=== PATIENT | male | born 1970 | race Caucasian/White ===

== ENCOUNTER 2018-04-22 14:58 | Inpatient (IN) ==
[2018-04-22 15:54] LABS: Basophils % 0.2 % (0.0-0.8); Hematocrit 41.5 VOL% (42.0-52.0); Hemoglobin 13.8 GM/DL (14.0-18.0); Immature Granulocytes % 0.9 %; Immature Granulocytes Absolute 0.12 #; Lymphocytes # 1.3 10*3/uL (1.4-4.0); Lymphocytes % 9.5 % (21.2-54.2); Mean Corpuscular HGB Conc 33.3 GM/DL (32-36); Mean Corpuscular Hemoglobin 31 PG (27-34); Mean Corpuscular Volume 93.3 FL (87-102); Mean Platelet Volume 9.1 FL (9.6-12.0); Monocytes # 0.8 10*3/uL (0.11-0.8); Monocytes % 5.8 % (1.7-12.7); Neutrophils # 11.1 10*3/uL (1.4-7.4); Neutrophils % 83.6 % (38.7-73.9); Platelet Count 347 T/CUMM (130-400); Red Blood Count 4.45 MC/CUMM (3.8-5.5); Red Cell Distribution Width 12.5 % (9.3-17.3); White Blood Count 13.2 T/CUMM (4-12)
[2018-04-22 16:13] LABS: Alanine Aminotransferase 67 U/L (16-61); Alkaline Phosphatase 75 U/L (45-117); Aspartate Amino Transferase 38 U/L (0-37); Blood Urea Nitrogen 20 MG/DL (7-18); Calcium 8.7 MG/DL (8.5-10.1); Glucose 130 MG/DL (74-106); Osmolality,Calculated 281.5 MOS/KG (273-304); Potassium 3.6 MMOL/L (3.5-5.1); Sodium 139 MMOL/L (136-145); Total Protein 7.8 G/DL (6.4-8.3)
[2018-04-22 16:18] LABS: Lactic Acid 2.2 MMOL/L (0.4-2.0)
[2018-04-22] MEDS ORDERED: methylPREDNISolone SOD SUC 40 MG/1 ML VIAL IV STA (16:22)
[2018-04-22] MEDS ORDERED: ALBUTEROL/IPRATROPIUM 3 ML NEB RESP TX STA (16:22)
[2018-04-22] MEDS ORDERED: LEVOFLOXACIN INJ 500 MG in PREMIX 1 EACH IV STA (16:22)
[2018-04-22 16:34] LABS: Apearance,Urine CLEAR (Clear); Bilirubin,Urine Negative (Negative); Blood, Urine Negative (Negative); Glucose,Urine (UA) Negative (Negative); Ketones,Urine Negative (Negative); Mucus,Urine Occasional /LPF (Occasional); Nitrite,Urine Negative (Negative); Protein,Urine 30 MG/DL; RBC,Urine <1 /HPF (0-4); Urine Color Yellow (Yellow); Urine Specific Gravity 1.024 (1.001-1.035); Urine Urobilinogen < 2.0 EU/DL (0.2-1.0); WBC,Urine 1 /HPF (0-6)
[2018-04-22] MEDS ORDERED: ACETAMINOPHEN 325 MG TABLET PO PRN (17:17)
[2018-04-22] MEDS ORDERED: ONDANSETRON 4 MG/2 ML VIAL IV PRN (17:17)
[2018-04-22] MEDS ORDERED: ALBUTEROL/IPRATROPIUM 3 ML NEB RESP TX PRN (17:19)
[2018-04-22] MEDS ORDERED: FUROSEMIDE 40 MG/4 ML VIAL IV STA (17:20)
[2018-04-22] MEDS ORDERED: POTASSIUM CHLORIDE 20 MEQ TABLET PO STA (17:21)
[2018-04-22] MEDS ORDERED: AZITHROMYCIN INJ 500 MG in SODIUM CHLORIDE 0.9% 250 ML IV SCH (17:30)
[2018-04-22] MEDS ORDERED: cefTRIAXone 1,000 MG in SYRINGE 1 EACH IV SCH (17:30)
[2018-04-22] MEDS ORDERED: SODIUM CHLORIDE 0.9% 100 ML IV ONE (17:47)
[2018-04-22] MEDS ORDERED: ALBUTEROL/IPRATROPIUM 3 ML NEB RESP TX SCH (19:00)
[2018-04-22] MEDS: methylPREDNISolone SOD SUC 40 MG/1 ML VIAL IV SCH (20:17)
[2018-04-22] MEDS: ENOXAPARIN 40 MG/0.4 ML SYRINGE SUBCUT SCH (21:08)
[2018-04-22] MEDS: guaiFENesin/DM ER 600-30 MG TABLET PO SCH (21:08)
[2018-04-22] MEDS: CARVEDILOL 6.25 MG TABLET PO SCH (21:09)
[2018-04-22] MEDS: ALBUTEROL/IPRATROPIUM 3 ML NEB RESP TX SCH (23:27)
[2018-04-23] MEDS: methylPREDNISolone SOD SUC 40 MG/1 ML VIAL IV SCH ×3 (01:30→18:04)
[2018-04-23] MEDS: ALBUTEROL/IPRATROPIUM 3 ML NEB RESP TX SCH ×7 (04:55→23:49)
[2018-04-23 05:31] LABS: Basophils % 0.1 % (0.0-0.8); Hematocrit 39.9 VOL% (42.0-52.0); Immature Granulocytes % 0.6 %; Immature Granulocytes Absolute 0.07 #; Lymphocytes # 0.7 10*3/uL (1.4-4.0); Lymphocytes % 6.5 % (21.2-54.2); Mean Corpuscular HGB Conc 32.6 GM/DL (32-36); Mean Corpuscular Hemoglobin 31 PG (27-34); Mean Corpuscular Volume 94.1 FL (87-102); Mean Platelet Volume 9.4 FL (9.6-12.0); Monocytes # 0.3 10*3/uL (0.11-0.8); Monocytes % 2.4 % (1.7-12.7); Neutrophils # 10.1 10*3/uL (1.4-7.4); Neutrophils % 90.4 % (38.7-73.9); Platelet Count 339 T/CUMM (130-400); Red Blood Count 4.24 MC/CUMM (3.8-5.5); Red Cell Distribution Width 12.6 % (9.3-17.3); White Blood Count 11.1 T/CUMM (4-12)
[2018-04-23 06:21] LABS: Calcium 8.6 MG/DL (8.5-10.1); Osmolality,Calculated 286.1 MOS/KG (273-304); Potassium 4.2 MMOL/L (3.5-5.1); Thyroid Stimulating Hormone 0.834 uIU/ml (0.358-3.74)
[2018-04-23 08:36] LABS: HIV Antigen/Antibody Result Nonreactive (Nonreactive)
[2018-04-23] MEDS: amLODIPine 5 MG TABLET PO SCH (09:32)
[2018-04-23] MEDS: hydroCHLOROthiazide 25 MG TABLET PO SCH (09:32)
[2018-04-23] MEDS: CARVEDILOL 6.25 MG TABLET PO SCH (09:32)
[2018-04-23] MEDS: OLMESARTAN 20 MG TABLET PO SCH (09:32)
[2018-04-23] MEDS: guaiFENesin/DM ER 600-30 MG TABLET PO SCH ×2 (09:32→21:14)
[2018-04-23] MEDS: SULFAMETHOX/TRIMETHOPRIM 800-160 MG TABLET PO SCH ×2 (09:35→21:14)
[2018-04-23] MEDS: FUROSEMIDE 20 MG/2 ML VIAL IV SCH (09:36)
[2018-04-23] MEDS ORDERED: CARVEDILOL 6.25 MG TABLET PO ONE (10:35)
[2018-04-23] MEDS: LEVOFLOXACIN INJ 750 MG in PREMIX 1 EACH IV SCH (16:30)
[2018-04-23] MEDS: ENOXAPARIN 40 MG/0.4 ML SYRINGE SUBCUT SCH (18:04)
[2018-04-23] MEDS: PIPERACILLIN/TAZOBACTAM 3,375 MG in SODIUM CHLORIDE 0.9% 100 ML IV SCH (18:05)
[2018-04-23] MEDS: ATORVASTATIN 20 MG TABLET PO SCH (21:14)
[2018-04-23] MEDS: CARVEDILOL 12.5 MG TABLET PO SCH (21:14)
[2018-04-24] MEDS: PIPERACILLIN/TAZOBACTAM 3,375 MG in SODIUM CHLORIDE 0.9% 100 ML IV SCH ×3 (00:56→20:50)
[2018-04-24] MEDS: methylPREDNISolone SOD SUC 40 MG/1 ML VIAL IV SCH ×3 (00:56→17:18)
[2018-04-24] MEDS: ALBUTEROL/IPRATROPIUM 3 ML NEB RESP TX SCH ×6 (03:49→23:57)
[2018-04-24 05:57] LABS: Basophils % 0.1 % (0.0-0.8); Hematocrit 39.3 VOL% (42.0-52.0); Hemoglobin 12.9 GM/DL (14.0-18.0); Immature Granulocytes % 0.6 %; Lymphocytes # 0.8 10*3/uL (1.4-4.0); Lymphocytes % 4.7 % (21.2-54.2); Mean Corpuscular HGB Conc 32.8 GM/DL (32-36); Mean Corpuscular Hemoglobin 31 PG (27-34); Mean Corpuscular Volume 94.9 FL (87-102); Mean Platelet Volume 9.3 FL (9.6-12.0); Monocytes # 0.6 10*3/uL (0.11-0.8); Monocytes % 3.4 % (1.7-12.7); Neutrophils # 14.7 10*3/uL (1.4-7.4); Neutrophils % 91.2 % (38.7-73.9); Platelet Count 380 T/CUMM (130-400); Red Blood Count 4.14 MC/CUMM (3.8-5.5); Red Cell Distribution Width 12.5 % (9.3-17.3); White Blood Count 16.1 T/CUMM (4-12)
[2018-04-24 06:19] LABS: Calcium 8.1 MG/DL (8.5-10.1); Calcium 8.3 MG/DL (8.5-10.1); Osmolality,Calculated 281.5 MOS/KG (273-304); Osmolality,Calculated 283.4 MOS/KG (273-304); Potassium 4.1 MMOL/L (3.5-5.1); Potassium 4.2 MMOL/L (3.5-5.1)
[2018-04-24 07:28] LABS: Lymphocytes 5 % (20-55); Segmented Neutrophils 90 % (50-85); Total Cells Counted 100
[2018-04-24 07:32] LABS: Hypochromasia Slight; Platelet Estimate Normal
[2018-04-24] MEDS ORDERED: AZITHROMYCIN 250 MG TABLET PO SCH (09:00)
[2018-04-24] MEDS: FUROSEMIDE 20 MG/2 ML VIAL IV SCH (10:04)
[2018-04-24] MEDS: guaiFENesin/DM ER 600-30 MG TABLET PO SCH ×2 (10:04→20:53)
[2018-04-24] MEDS: hydroCHLOROthiazide 25 MG TABLET PO SCH (10:04)
[2018-04-24] MEDS: SULFAMETHOX/TRIMETHOPRIM 800-160 MG TABLET PO SCH ×2 (10:04→20:53)
[2018-04-24] MEDS: CARVEDILOL 12.5 MG TABLET PO SCH ×2 (10:04→20:53)
[2018-04-24] MEDS: OLMESARTAN 20 MG TABLET PO SCH (10:04)
[2018-04-24] MEDS: amLODIPine 5 MG TABLET PO SCH (10:08)
[2018-04-24] MEDS: LEVOFLOXACIN INJ 750 MG in PREMIX 1 EACH IV SCH (17:18)
[2018-04-24] MEDS: ENOXAPARIN 40 MG/0.4 ML SYRINGE SUBCUT SCH (18:20)
[2018-04-24] MEDS: PANTOPRAZOLE 40 MG TABLET PO SCH (18:51)
[2018-04-24] MEDS: ATORVASTATIN 20 MG TABLET PO SCH (20:53)
[2018-04-25] MEDS: BENZONATATE 100 MG CAPSULE PO SCH ×5 (00:07→17:20)
[2018-04-25] MEDS: ALBUTEROL/IPRATROPIUM 3 ML NEB RESP TX SCH ×6 (03:39→23:17)
[2018-04-25] MEDS: PIPERACILLIN/TAZOBACTAM 3,375 MG in SODIUM CHLORIDE 0.9% 100 ML IV SCH ×3 (05:09→20:40)
[2018-04-25] MEDS: OLMESARTAN 20 MG TABLET PO SCH (08:36)
[2018-04-25] MEDS: methylPREDNISolone SOD SUC 40 MG/1 ML VIAL IV SCH ×2 (08:36→20:40)
[2018-04-25] MEDS: FUROSEMIDE 20 MG/2 ML VIAL IV SCH (08:36)
[2018-04-25] MEDS: CARVEDILOL 12.5 MG TABLET PO SCH ×2 (08:37→20:40)
[2018-04-25] MEDS: guaiFENesin/DM ER 600-30 MG TABLET PO SCH ×2 (08:37→20:40)
[2018-04-25] MEDS: amLODIPine 5 MG TABLET PO SCH (08:37)
[2018-04-25] MEDS: SULFAMETHOX/TRIMETHOPRIM 800-160 MG TABLET PO SCH (08:37)
[2018-04-25] MEDS: PANTOPRAZOLE 40 MG TABLET PO SCH (08:37)
[2018-04-25] MEDS: hydroCHLOROthiazide 25 MG TABLET PO SCH (08:37)
[2018-04-25] MEDS: ENOXAPARIN 40 MG/0.4 ML SYRINGE SUBCUT SCH (17:20)
[2018-04-25] MEDS: LEVOFLOXACIN INJ 750 MG in PREMIX 1 EACH IV SCH (18:04)
[2018-04-25] MEDS: ATORVASTATIN 20 MG TABLET PO SCH (20:40)
[2018-04-26] MEDS: BENZONATATE 100 MG CAPSULE PO SCH ×5 (00:37→23:39)
[2018-04-26] MEDS: ALBUTEROL/IPRATROPIUM 3 ML NEB RESP TX SCH ×6 (03:03→23:44)
[2018-04-26] MEDS: PIPERACILLIN/TAZOBACTAM 3,375 MG in SODIUM CHLORIDE 0.9% 100 ML IV SCH ×3 (05:40→21:40)
[2018-04-26] MEDS: guaiFENesin/DM ER 600-30 MG TABLET PO SCH ×2 (08:58→21:39)
[2018-04-26] MEDS: PANTOPRAZOLE 40 MG TABLET PO SCH (08:58)
[2018-04-26] MEDS: OLMESARTAN 20 MG TABLET PO SCH (08:58)
[2018-04-26] MEDS: CARVEDILOL 12.5 MG TABLET PO SCH ×2 (08:58→21:39)
[2018-04-26] MEDS: amLODIPine 5 MG TABLET PO SCH (08:58)
[2018-04-26] MEDS: FUROSEMIDE 20 MG/2 ML VIAL IV SCH (08:58)
[2018-04-26] MEDS: methylPREDNISolone SOD SUC 40 MG/1 ML VIAL IV SCH (08:59)
[2018-04-26] MEDS ORDERED: methylPREDNISolone SOD SUC 40 MG/1 ML VIAL IV SCH (10:00)
[2018-04-26 10:56] LABS: Calcium 8.2 MG/DL (8.5-10.1); Osmolality,Calculated 284.5 MOS/KG (273-304); Potassium 3.8 MMOL/L (3.5-5.1)
[2018-04-26] MEDS: LEVOFLOXACIN INJ 750 MG in PREMIX 1 EACH IV SCH (16:49)
[2018-04-26] MEDS: ENOXAPARIN 40 MG/0.4 ML SYRINGE SUBCUT SCH (18:12)
[2018-04-26] MEDS: ATORVASTATIN 20 MG TABLET PO SCH (21:39)
[2018-04-27] MEDS: ALBUTEROL/IPRATROPIUM 3 ML NEB RESP TX SCH ×2 (03:21→07:52)
[2018-04-27] MEDS: PIPERACILLIN/TAZOBACTAM 3,375 MG in SODIUM CHLORIDE 0.9% 100 ML IV SCH (05:22)
[2018-04-27] MEDS: BENZONATATE 100 MG CAPSULE PO SCH ×2 (05:25→14:30)
[2018-04-27] MEDS: FUROSEMIDE 20 MG/2 ML VIAL IV SCH (09:06)
[2018-04-27] MEDS: amLODIPine 5 MG TABLET PO SCH (09:06)
[2018-04-27] MEDS: PANTOPRAZOLE 40 MG TABLET PO SCH (09:06)
[2018-04-27] MEDS: guaiFENesin/DM ER 600-30 MG TABLET PO SCH (09:06)
[2018-04-27] MEDS: CARVEDILOL 12.5 MG TABLET PO SCH (09:06)
[2018-04-27] MEDS: OLMESARTAN 20 MG TABLET PO SCH (09:07)
[2018-04-27 09:14] LABS: Basophils % 0.3 % (0.0-0.8); Eosinophils % 0.2 % (0.00-10.9); Hematocrit 44.4 VOL% (42.0-52.0); Hemoglobin 14.4 GM/DL (14.0-18.0); Immature Granulocytes % 2.9 %; Immature Granulocytes Absolute 0.37 #; Lymphocytes # 2.2 10*3/uL (1.4-4.0); Lymphocytes % 17.2 % (21.2-54.2); Mean Corpuscular HGB Conc 32.4 GM/DL (32-36); Mean Corpuscular Hemoglobin 31 PG (27-34); Mean Corpuscular Volume 94.5 FL (87-102); Mean Platelet Volume 9.1 FL (9.6-12.0); Monocytes # 0.8 10*3/uL (0.11-0.8); Monocytes % 6.5 % (1.7-12.7); Neutrophils # 9.3 10*3/uL (1.4-7.4); Neutrophils % 72.9 % (38.7-73.9); Platelet Count 439 T/CUMM (130-400); Red Cell Distribution Width 12.3 % (9.3-17.3); White Blood Count 12.7 T/CUMM (4-12)
[2018-04-27] MEDS ORDERED: methylPREDNISolone SOD SUC 40 MG/1 ML VIAL IV SCH (10:00)
[2018-04-27 10:49] VITALS: BP 121/68
== END 2018-04-27 12:10 | disposition home or self-care (01) | DRG 291 ==
LOC: N.ED 14:58 → SUATTDRO 17:17 → N.5E 17:17
PROVIDERS: ADMIT Internal Medicine; ATTEND Internal Medicine

== ENCOUNTER 2018-05-31 00:42 | Inpatient (IN) ==
[2018-05-31] MEDS ORDERED: KETOROLAC 30 MG/1 ML VIAL IV STA (01:10)
[2018-05-31] MEDS ORDERED: ORPHENADRINE 60 MG/2 ML VIAL IV STA (01:12)
[2018-05-31 01:18] LABS: Basophils # 0.1 10*3/uL (0.0-0.2); Basophils % 0.7 % (0.0-0.8); Eosinophils # 0.2 10*3/uL (0.0-0.87); Eosinophils % 3.2 % (0.00-10.9); Hematocrit 42.5 VOL% (42.0-52.0); Immature Granulocytes % 0.7 %; Immature Granulocytes Absolute 0.05 #; Lymphocytes # 1.8 10*3/uL (1.4-4.0); Lymphocytes % 23.5 % (21.2-54.2); Mean Corpuscular HGB Conc 32.9 GM/DL (32-36); Mean Corpuscular Hemoglobin 31 PG (27-34); Mean Corpuscular Volume 93.4 FL (87-102); Mean Platelet Volume 9.3 FL (9.6-12.0); Monocytes # 0.4 10*3/uL (0.11-0.8); Monocytes % 5.3 % (1.7-12.7); Neutrophils % 66.6 % (38.7-73.9); Platelet Count 244 T/CUMM (130-400); Red Blood Count 4.55 MC/CUMM (3.8-5.5); Red Cell Distribution Width 12.5 % (9.3-17.3); White Blood Count 7.5 T/CUMM (4-12)
[2018-05-31 01:33] LABS: INR 0.9; Partial Thromboplastin Time 26.6 SECS (0-40)
[2018-05-31 01:42] LABS: Albumin 3.3 G/DL (3.4-5.0); Bilirubin,Total 0.9 MG/DL (0.2-1.0); Calcium 8.6 MG/DL (8.5-10.1); Potassium 3.5 MMOL/L (3.5-5.1); Total Protein 7.1 G/DL (6.4-8.3); Troponin I 0.031 NG/ML (0.00-0.045)
[2018-05-31] MEDS ORDERED: FUROSEMIDE 40 MG/4 ML VIAL IV STA (02:56)
[2018-05-31] MEDS ORDERED: MAGNESIUM SULF RIDER 4 GM in PREMIX 1 EACH IV PRN (04:36)
[2018-05-31] MEDS ORDERED: ONDANSETRON 4 MG/2 ML VIAL IV PRN (04:36)
[2018-05-31] MEDS ORDERED: MAGNESIUM SULF RIDER 2 GM in PREMIX 1 EACH IV PRN (04:36)
[2018-05-31] MEDS ORDERED: BENZONATATE 100 MG CAPSULE PO PRN (04:36)
[2018-05-31] MEDS ORDERED: ACETAMINOPHEN 325 MG TABLET PO PRN (04:36)
[2018-05-31] MEDS: amLODIPine 5 MG TABLET PO SCH (08:57)
[2018-05-31] MEDS: FUROSEMIDE 40 MG/4 ML VIAL IV SCH ×2 (08:57→17:02)
[2018-05-31] MEDS: LOSARTAN 25 MG TABLET PO SCH (08:57)
[2018-05-31] MEDS: PANTOPRAZOLE 40 MG TABLET PO SCH (08:57)
[2018-05-31] MEDS: CARVEDILOL 12.5 MG TABLET PO SCH ×2 (08:57→17:02)
[2018-05-31] MEDS: ENOXAPARIN 40 MG/0.4 ML SYRINGE SUBCUT SCH (08:58)
[2018-05-31] MEDS: ATORVASTATIN 20 MG TABLET PO SCH (22:08)
[2018-06-01 04:35] LABS: Basophils % 0.6 % (0.0-0.8); Eosinophils # 0.3 10*3/uL (0.0-0.87); Eosinophils % 4.5 % (0.00-10.9); Hematocrit 40.4 VOL% (42.0-52.0); Immature Granulocytes % 0.9 %; Immature Granulocytes Absolute 0.06 #; Lymphocytes # 1.9 10*3/uL (1.4-4.0); Lymphocytes % 27.2 % (21.2-54.2); Mean Corpuscular HGB Conc 32.2 GM/DL (32-36); Mean Corpuscular Hemoglobin 30 PG (27-34); Mean Corpuscular Volume 93.5 FL (87-102); Mean Platelet Volume 9.8 FL (9.6-12.0); Monocytes # 0.5 10*3/uL (0.11-0.8); Monocytes % 7.3 % (1.7-12.7); Neutrophils # 4.1 10*3/uL (1.4-7.4); Neutrophils % 59.5 % (38.7-73.9); Platelet Count 238 T/CUMM (130-400); Red Blood Count 4.32 MC/CUMM (3.8-5.5); Red Cell Distribution Width 12.4 % (9.3-17.3); White Blood Count 6.9 T/CUMM (4-12)
[2018-06-01 04:50] LABS: Calcium 8.4 MG/DL (8.5-10.1); Osmolality,Calculated 282.4 MOS/KG (273-304); Potassium 3.1 MMOL/L (3.5-5.1)
[2018-06-01] MEDS: POTASSIUM CHLORIDE 20 MEQ TABLET PO PRN ×5 (06:42→23:20)
[2018-06-01] MEDS: LOSARTAN 25 MG TABLET PO SCH (09:13)
[2018-06-01] MEDS: ASPIRIN EC 81 MG TABLET PO SCH (09:13)
[2018-06-01] MEDS: amLODIPine 5 MG TABLET PO SCH (09:13)
[2018-06-01] MEDS: PANTOPRAZOLE 40 MG TABLET PO SCH (09:13)
[2018-06-01] MEDS: CARVEDILOL 12.5 MG TABLET PO SCH ×2 (09:13→17:02)
[2018-06-01] MEDS: ENOXAPARIN 40 MG/0.4 ML SYRINGE SUBCUT SCH (09:14)
[2018-06-01] MEDS: FUROSEMIDE 40 MG/4 ML VIAL IV SCH ×2 (09:14→17:01)
[2018-06-01] MEDS ORDERED: MAGNESIUM SULF RIDER 2 GM in PREMIX 1 EACH IV PRN (11:58)
[2018-06-01] MEDS ORDERED: POTASSIUM CHLORIDE RIDER 10 MEQ in PREMIX 1 EACH IV PRN (11:58)
[2018-06-01] MEDS: ATORVASTATIN 20 MG TABLET PO SCH (20:56)
[2018-06-02 04:43] LABS: Basophils # 0.1 10*3/uL (0.0-0.2); Basophils % 0.8 % (0.0-0.8); Eosinophils # 0.4 10*3/uL (0.0-0.87); Eosinophils % 4.7 % (0.00-10.9); Hematocrit 41.3 VOL% (42.0-52.0); Hemoglobin 13.5 GM/DL (14.0-18.0); Immature Granulocytes % 0.7 %; Immature Granulocytes Absolute 0.05 #; Lymphocytes % 26.9 % (21.2-54.2); Mean Corpuscular HGB Conc 32.7 GM/DL (32-36); Mean Corpuscular Hemoglobin 31 PG (27-34); Mean Corpuscular Volume 93.2 FL (87-102); Mean Platelet Volume 9.6 FL (9.6-12.0); Monocytes # 0.5 10*3/uL (0.11-0.8); Monocytes % 6.9 % (1.7-12.7); Neutrophils # 4.5 10*3/uL (1.4-7.4); Platelet Count 236 T/CUMM (130-400); Red Blood Count 4.43 MC/CUMM (3.8-5.5); Red Cell Distribution Width 12.4 % (9.3-17.3); White Blood Count 7.5 T/CUMM (4-12)
[2018-06-02 05:09] LABS: Calcium 8.5 MG/DL (8.5-10.1); Osmolality,Calculated 284.1 MOS/KG (273-304); Potassium 3.7 MMOL/L (3.5-5.1)
[2018-06-02] MEDS ORDERED: SODIUM BICARBONATE 2.4 MEQ/5 ML VIAL ONE (06:45)
[2018-06-02] MEDS ORDERED: HEPARIN/NACL 0.9% 2 UNITS/ML 1,000 ML IV ONE (06:45)
[2018-06-02] MEDS ORDERED: SODIUM CHLORIDE 0.45% 1,000 ML IV SCH (07:00)
[2018-06-02] MEDS: CARVEDILOL 12.5 MG TABLET PO SCH ×2 (07:59→16:57)
[2018-06-02] MEDS: ASPIRIN EC 81 MG TABLET PO SCH (08:00)
[2018-06-02] MEDS: amLODIPine 5 MG TABLET PO SCH (08:00)
[2018-06-02] MEDS: LOSARTAN 25 MG TABLET PO SCH (08:00)
[2018-06-02] MEDS: PANTOPRAZOLE 40 MG TABLET PO SCH (08:00)
[2018-06-02] MEDS ORDERED: MIDAZOLAM 2 MG/2 ML VIAL ONE ×2 (08:20→08:36)
[2018-06-02] MEDS ORDERED: fentaNYL 100 MCG/2 ML VIAL ONE (08:20)
[2018-06-02] MEDS ORDERED: DIAZEPAM 5 MG TABLET PO ONE (08:30)
[2018-06-02] MEDS ORDERED: diphenhydrAMINE CAP 25 MG CAPSULE PO ONE (08:30)
[2018-06-02] MEDS ORDERED: LIDOCAINE 1% 20 ML VIAL ONE (08:50)
[2018-06-02] MEDS ORDERED: MORPHINE 4 MG/1 ML VIAL IV PRN (09:10)
[2018-06-02] MEDS: FUROSEMIDE 40 MG/4 ML VIAL IV SCH ×2 (16:36→16:55)
[2018-06-02] MEDS: ENOXAPARIN 40 MG/0.4 ML SYRINGE SUBCUT SCH (16:37)
[2018-06-02] MEDS: ATORVASTATIN 20 MG TABLET PO SCH (21:27)
[2018-06-03 04:35] LABS: Basophils % 0.5 % (0.0-0.8); Eosinophils # 0.4 10*3/uL (0.0-0.87); Eosinophils % 4.7 % (0.00-10.9); Hemoglobin 12.9 GM/DL (14.0-18.0); Immature Granulocytes % 0.5 %; Immature Granulocytes Absolute 0.04 #; Lymphocytes # 1.9 10*3/uL (1.4-4.0); Lymphocytes % 24.6 % (21.2-54.2); Mean Corpuscular HGB Conc 32.3 GM/DL (32-36); Mean Corpuscular Hemoglobin 30 PG (27-34); Mean Corpuscular Volume 94.1 FL (87-102); Mean Platelet Volume 9.7 FL (9.6-12.0); Monocytes # 0.5 10*3/uL (0.11-0.8); Monocytes % 6.4 % (1.7-12.7); Neutrophils # 4.9 10*3/uL (1.4-7.4); Neutrophils % 63.3 % (38.7-73.9); Platelet Count 226 T/CUMM (130-400); Red Blood Count 4.25 MC/CUMM (3.8-5.5); Red Cell Distribution Width 12.5 % (9.3-17.3); White Blood Count 7.8 T/CUMM (4-12)
[2018-06-03 04:52] LABS: Calcium 8.3 MG/DL (8.5-10.1); Osmolality,Calculated 284.3 MOS/KG (273-304); Potassium 3.7 MMOL/L (3.5-5.1)
[2018-06-03 08:22] VITALS: BP 120/71
[2018-06-03] MEDS: FUROSEMIDE 40 MG/4 ML VIAL IV SCH (08:58)
[2018-06-03] MEDS: ASPIRIN EC 81 MG TABLET PO SCH (08:59)
[2018-06-03] MEDS: CARVEDILOL 12.5 MG TABLET PO SCH (08:59)
[2018-06-03] MEDS: ENOXAPARIN 40 MG/0.4 ML SYRINGE SUBCUT SCH (08:59)
[2018-06-03] MEDS: amLODIPine 5 MG TABLET PO SCH (08:59)
[2018-06-03] MEDS: PANTOPRAZOLE 40 MG TABLET PO SCH (08:59)
[2018-06-03] MEDS: LOSARTAN 25 MG TABLET PO SCH (08:59)
[2018-06-03] MEDS ORDERED: FUROSEMIDE 40 MG TABLET PO SCH (09:00)
== END 2018-06-03 11:55 | disposition home or self-care (01) | DRG 287 ==
LOC: N.ED 00:42 → N.EDINP 03:44 → N.TELES 04:33
PROVIDERS: ADMIT Internal Medicine; ATTEND Internal Medicine
PROC: CLCCHCL (ICD-10-PCS; 2018-06-02 08:45)

== ENCOUNTER 2018-07-06 17:45 | Inpatient (IN) ==
[2018-07-06 19:38] LABS: Basophils # 0.1 10*3/uL (0.0-0.2); Basophils % 0.6 % (0.0-0.8); Eosinophils # 0.4 10*3/uL (0.0-0.87); Hematocrit 39.5 VOL% (42.0-52.0); Hemoglobin 12.7 GM/DL (14.0-18.0); Immature Granulocytes % 0.4 %; Immature Granulocytes Absolute 0.04 #; Lymphocytes # 2.3 10*3/uL (1.4-4.0); Mean Corpuscular HGB Conc 32.2 GM/DL (32-36); Mean Corpuscular Hemoglobin 30 PG (27-34); Mean Corpuscular Volume 92.7 FL (87-102); Mean Platelet Volume 9.2 FL (9.6-12.0); Monocytes # 0.5 10*3/uL (0.11-0.8); Monocytes % 4.4 % (1.7-12.7); Neutrophils # 7.2 10*3/uL (1.4-7.4); Neutrophils % 68.6 % (38.7-73.9); Platelet Count 270 T/CUMM (130-400); Red Blood Count 4.26 MC/CUMM (3.8-5.5); Red Cell Distribution Width 13.4 % (9.3-17.3); White Blood Count 10.5 T/CUMM (4-12)
[2018-07-06] MEDS ORDERED: FUROSEMIDE 40 MG/4 ML VIAL IV STA (19:55)
[2018-07-06 20:00] LABS: Albumin 3.3 G/DL (3.4-5.0); Bilirubin,Total 0.8 MG/DL (0.2-1.0); Calcium 8.5 MG/DL (8.5-10.1); Osmolality,Calculated 281.4 MOS/KG (273-304); Potassium 3.6 MMOL/L (3.5-5.1); Total Protein 7.5 G/DL (6.4-8.3)
[2018-07-06] MEDS ORDERED: ZALEPLON 5 MG CAPSULE PO PRN (21:33)
[2018-07-06] MEDS ORDERED: MAGNESIUM SULF RIDER 2 GM in PREMIX 1 EACH IV PRN (21:33)
[2018-07-06] MEDS ORDERED: MAGNESIUM SULF RIDER 4 GM in PREMIX 1 EACH IV PRN (21:33)
[2018-07-06] MEDS ORDERED: ACETAMINOPHEN 325 MG TABLET PO PRN (21:33)
[2018-07-06] MEDS ORDERED: ONDANSETRON 4 MG/2 ML VIAL IV PRN (21:33)
[2018-07-06] MEDS ORDERED: ALBUTEROL 2.5 MG/3 ML NEB RESP TX PRN (21:38)
[2018-07-06] MEDS: ENOXAPARIN 40 MG/0.4 ML SYRINGE SUBCUT SCH (22:44)
[2018-07-07 07:02] LABS: Albumin 3.1 G/DL (3.4-5.0); Bilirubin,Total 1.7 MG/DL (0.2-1.0); Calcium 8.8 MG/DL (8.5-10.1); Osmolality,Calculated 275.7 MOS/KG (273-304); Potassium 3.4 MMOL/L (3.5-5.1)
[2018-07-07] MEDS ORDERED: LOSARTAN 25 MG TABLET PO SCH (09:00)
[2018-07-07] MEDS: CARVEDILOL 12.5 MG TABLET PO SCH ×2 (09:31→17:26)
[2018-07-07] MEDS: FUROSEMIDE 40 MG/4 ML VIAL IV SCH ×2 (09:31→17:26)
[2018-07-07] MEDS: SPIRONOLACTONE 25 MG TABLET PO SCH (09:31)
[2018-07-07] MEDS: amLODIPine 5 MG TABLET PO SCH (09:31)
[2018-07-07] MEDS: PANTOPRAZOLE 40 MG TABLET PO SCH (09:31)
[2018-07-07] MEDS: POTASSIUM CHLORIDE RIDER 10 MEQ in PREMIX 1 EACH IV PRN ×3 (10:33→14:50)
[2018-07-07] MEDS ORDERED: CLOTRIMAZOLE 1% CREAM 15 GM TUBE TOP SCH (21:00)
[2018-07-07] MEDS: SACUBITRIL/VALSARTAN 49-51 MG TABLET PO SCH (21:21)
[2018-07-07] MEDS: ENOXAPARIN 40 MG/0.4 ML SYRINGE SUBCUT SCH (21:21)
[2018-07-07] MEDS: ATORVASTATIN 20 MG TABLET PO SCH (21:22)
[2018-07-08 04:49] LABS: Basophils % 0.6 % (0.0-0.8); Eosinophils # 0.6 10*3/uL (0.0-0.87); Eosinophils % 8.4 % (0.00-10.9); Hematocrit 37.6 VOL% (42.0-52.0); Hemoglobin 11.9 GM/DL (14.0-18.0); Immature Granulocytes % 0.3 %; Immature Granulocytes Absolute 0.02 #; Lymphocytes # 1.8 10*3/uL (1.4-4.0); Lymphocytes % 27.5 % (21.2-54.2); Mean Corpuscular HGB Conc 31.6 GM/DL (32-36); Mean Corpuscular Hemoglobin 29 PG (27-34); Mean Corpuscular Volume 92.4 FL (87-102); Mean Platelet Volume 9.1 FL (9.6-12.0); Monocytes # 0.4 10*3/uL (0.11-0.8); Monocytes % 6.1 % (1.7-12.7); Neutrophils # 3.7 10*3/uL (1.4-7.4); Neutrophils % 57.1 % (38.7-73.9); Platelet Count 240 T/CUMM (130-400); Red Blood Count 4.07 MC/CUMM (3.8-5.5); Red Cell Distribution Width 13.3 % (9.3-17.3); White Blood Count 6.6 T/CUMM (4-12)
[2018-07-08 05:07] LABS: Calcium 8.6 MG/DL (8.5-10.1); Osmolality,Calculated 279.5 MOS/KG (273-304); Potassium 3.6 MMOL/L (3.5-5.1)
[2018-07-08] MEDS: SPIRONOLACTONE 25 MG TABLET PO SCH (11:12)
[2018-07-08] MEDS: amLODIPine 5 MG TABLET PO SCH (11:13)
[2018-07-08] MEDS: PANTOPRAZOLE 40 MG TABLET PO SCH (11:13)
[2018-07-08] MEDS: CARVEDILOL 12.5 MG TABLET PO SCH (11:13)
[2018-07-08] MEDS: SACUBITRIL/VALSARTAN 49-51 MG TABLET PO SCH ×2 (11:14→21:53)
[2018-07-08] MEDS: FUROSEMIDE 40 MG/4 ML VIAL IV SCH (11:16)
[2018-07-08] MEDS ORDERED: CARVEDILOL 25 MG TABLET PO SCH (17:00)
[2018-07-08] MEDS: FUROSEMIDE 40 MG TABLET PO SCH (17:25)
[2018-07-08] MEDS: ENOXAPARIN 40 MG/0.4 ML SYRINGE SUBCUT SCH (21:53)
[2018-07-08] MEDS: ATORVASTATIN 20 MG TABLET PO SCH (21:53)
[2018-07-09 05:47] LABS: Basophils % 0.6 % (0.0-0.8); Eosinophils # 0.6 10*3/uL (0.0-0.87); Eosinophils % 8.4 % (0.00-10.9); Hematocrit 37.8 VOL% (42.0-52.0); Hemoglobin 12.1 GM/DL (14.0-18.0); Immature Granulocytes % 0.3 %; Immature Granulocytes Absolute 0.02 #; Lymphocytes # 1.8 10*3/uL (1.4-4.0); Lymphocytes % 27.8 % (21.2-54.2); Mean Corpuscular Hemoglobin 30 PG (27-34); Mean Corpuscular Volume 92.4 FL (87-102); Mean Platelet Volume 9.4 FL (9.6-12.0); Monocytes # 0.4 10*3/uL (0.11-0.8); Monocytes % 6.7 % (1.7-12.7); Neutrophils # 3.7 10*3/uL (1.4-7.4); Neutrophils % 56.2 % (38.7-73.9); Platelet Count 244 T/CUMM (130-400); Red Blood Count 4.09 MC/CUMM (3.8-5.5); Red Cell Distribution Width 13.3 % (9.3-17.3); White Blood Count 6.6 T/CUMM (4-12)
[2018-07-09 06:04] LABS: Calcium 8.5 MG/DL (8.5-10.1); Osmolality,Calculated 281.4 MOS/KG (273-304); Potassium 3.6 MMOL/L (3.5-5.1)
[2018-07-09] MEDS: CARVEDILOL 6.25 MG TABLET PO SCH ×2 (08:52→17:22)
[2018-07-09] MEDS: PANTOPRAZOLE 40 MG TABLET PO SCH (08:52)
[2018-07-09] MEDS: SPIRONOLACTONE 25 MG TABLET PO SCH (08:52)
[2018-07-09] MEDS: FUROSEMIDE 40 MG TABLET PO SCH ×2 (08:52→17:22)
[2018-07-09] MEDS: POTASSIUM CHLORIDE 20 MEQ TABLET PO SCH (08:52)
[2018-07-09] MEDS: cefTRIAXone 1,000 MG in SYRINGE 1 EACH IV SCH (11:00)
[2018-07-09] MEDS: ATORVASTATIN 20 MG TABLET PO SCH (22:02)
[2018-07-09] MEDS: ENOXAPARIN 40 MG/0.4 ML SYRINGE SUBCUT SCH (22:03)
[2018-07-10 06:03] LABS: Basophils % 0.5 % (0.0-0.8); Eosinophils # 0.5 10*3/uL (0.0-0.87); Eosinophils % 5.4 % (0.00-10.9); Hematocrit 37.5 VOL% (42.0-52.0); Hemoglobin 11.9 GM/DL (14.0-18.0); Immature Granulocytes % 0.3 %; Immature Granulocytes Absolute 0.03 #; Lymphocytes # 1.9 10*3/uL (1.4-4.0); Lymphocytes % 21.6 % (21.2-54.2); Mean Corpuscular HGB Conc 31.7 GM/DL (32-36); Mean Corpuscular Hemoglobin 30 PG (27-34); Mean Corpuscular Volume 92.8 FL (87-102); Mean Platelet Volume 9.3 FL (9.6-12.0); Monocytes # 0.5 10*3/uL (0.11-0.8); Monocytes % 5.8 % (1.7-12.7); Neutrophils # 5.8 10*3/uL (1.4-7.4); Neutrophils % 66.4 % (38.7-73.9); Platelet Count 219 T/CUMM (130-400); Red Blood Count 4.04 MC/CUMM (3.8-5.5); Red Cell Distribution Width 13.3 % (9.3-17.3); White Blood Count 8.7 T/CUMM (4-12)
[2018-07-10 06:31] LABS: Calcium 8.5 MG/DL (8.5-10.1); Osmolality,Calculated 279.4 MOS/KG (273-304)
[2018-07-10] MEDS: FUROSEMIDE 40 MG TABLET PO SCH ×2 (08:43→16:19)
[2018-07-10] MEDS: CARVEDILOL 6.25 MG TABLET PO SCH ×2 (08:43→16:19)
[2018-07-10] MEDS: POTASSIUM CHLORIDE 20 MEQ TABLET PO SCH (08:43)
[2018-07-10] MEDS: SPIRONOLACTONE 25 MG TABLET PO SCH (08:43)
[2018-07-10] MEDS: PANTOPRAZOLE 40 MG TABLET PO SCH (08:43)
[2018-07-10] MEDS: cefTRIAXone 1,000 MG in SYRINGE 1 EACH IV SCH (11:25)
[2018-07-10] MEDS: ATORVASTATIN 20 MG TABLET PO SCH (22:30)
[2018-07-10] MEDS: ENOXAPARIN 40 MG/0.4 ML SYRINGE SUBCUT SCH (22:30)
[2018-07-10] MEDS: SACUBITRIL/VALSARTAN 49-51 MG TABLET PO SCH (22:34)
[2018-07-11 05:41] LABS: Basophils # 0.1 10*3/uL (0.0-0.2); Basophils % 0.7 % (0.0-0.8); Eosinophils # 0.6 10*3/uL (0.0-0.87); Eosinophils % 8.3 % (0.00-10.9); Hematocrit 38.5 VOL% (42.0-52.0); Hemoglobin 12.1 GM/DL (14.0-18.0); Immature Granulocytes % 0.3 %; Immature Granulocytes Absolute 0.02 #; Lymphocytes # 1.7 10*3/uL (1.4-4.0); Lymphocytes % 23.6 % (21.2-54.2); Mean Corpuscular HGB Conc 31.4 GM/DL (32-36); Mean Corpuscular Hemoglobin 30 PG (27-34); Mean Corpuscular Volume 93.9 FL (87-102); Mean Platelet Volume 9.6 FL (9.6-12.0); Monocytes # 0.5 10*3/uL (0.11-0.8); Monocytes % 6.8 % (1.7-12.7); Neutrophils # 4.4 10*3/uL (1.4-7.4); Neutrophils % 60.3 % (38.7-73.9); Platelet Count 236 T/CUMM (130-400); Red Cell Distribution Width 13.5 % (9.3-17.3); White Blood Count 7.3 T/CUMM (4-12)
[2018-07-11 06:00] LABS: Osmolality,Calculated 280.4 MOS/KG (273-304); Potassium 3.6 MMOL/L (3.5-5.1)
[2018-07-11] MEDS: SACUBITRIL/VALSARTAN 49-51 MG TABLET PO SCH (09:39)
[2018-07-11] MEDS: PANTOPRAZOLE 40 MG TABLET PO SCH (09:39)
[2018-07-11] MEDS: POTASSIUM CHLORIDE 20 MEQ TABLET PO SCH (09:39)
[2018-07-11] MEDS: SPIRONOLACTONE 25 MG TABLET PO SCH (09:39)
[2018-07-11] MEDS: CARVEDILOL 6.25 MG TABLET PO SCH (09:39)
[2018-07-11] MEDS: FUROSEMIDE 40 MG TABLET PO SCH (09:39)
[2018-07-11 10:05] VITALS: BP 109/66
[2018-07-11] MEDS: cefTRIAXone 1,000 MG in SYRINGE 1 EACH IV SCH (11:24)
== END 2018-07-11 12:26 | disposition home or self-care (01) | DRG 291 ==
LOC: N.ED 17:45 → N.EDINP 21:33 → SUATTDRO 21:33 → N.3E 22:47
PROVIDERS: ADMIT Internal Medicine; ATTEND Hospitalist

== ENCOUNTER 2020-03-13 08:22 | Observation (INO) ==
[2020-03-13 09:06] LABS: Basophils # 0.1 10*3/uL (0.0-0.2); Basophils % 0.5 % (0.0-0.8); Eosinophils # 0.4 10*3/uL (0.0-0.87); Eosinophils % 3.4 % (0.00-10.9); Hematocrit 40.9 VOL% (42.0-52.0); Hemoglobin 13.9 GM/DL (14.0-18.0); Immature Granulocytes % 0.4 %; Immature Granulocytes Absolute 0.04 #; Lymphocytes # 1.1 10*3/uL (1.4-4.0); Lymphocytes % 9.9 % (21.2-54.2); Mean Corpuscular Volume 91.9 FL (87-102); Mean Platelet Volume 8.8 FL (9.6-12.0); Monocytes % 4.1 % (1.7-12.7); Neutrophils % 81.7 % (38.7-73.9); Platelet Count 339 T/CUMM (130-400); Red Blood Count 4.45 MC/CUMM (3.8-5.5); Red Cell Distribution Width 11.9 % (9.3-17.3); White Blood Count 10.8 T/CUMM (4-12)
[2020-03-13] MEDS ORDERED: cefTRIAXone 1,000 MG in SODIUM CHLORIDE 0.9% 100 ML IV STA (09:17)
[2020-03-13 09:43] LABS: Albumin 3.3 G/DL (3.4-5.0); Calcium 8.8 MG/DL (8.5-10.1); Ferritin 121.5 ng/ml (26-388); Osmolality,Calculated 276.7 MOS/KG (273-304); Total Protein 7.4 G/DL (6.4-8.3)
[2020-03-13] MEDS ORDERED: FUROSEMIDE 100 MG/10 ML VIAL IV STA (10:09)
[2020-03-13] MEDS ORDERED: GLUCAGON 1 MG VIAL IM PRN (10:40)
[2020-03-13] MEDS ORDERED: ACETAMINOPHEN 325 MG TABLET PO PRN (10:40)
[2020-03-13] MEDS ORDERED: DEXTROSE 50% 25 GM/50 ML VIAL IV PRN (10:40)
[2020-03-13] MEDS ORDERED: ONDANSETRON 4 MG/2 ML VIAL IV PRN (10:40)
[2020-03-13] MEDS ORDERED: FUROSEMIDE 40 MG/4 ML VIAL ONE (10:41)
[2020-03-13] MEDS: INSULIN LISPRO 100 UNIT/ML SUBCUT SCH ×3 (12:35→19:01)
[2020-03-13] MEDS: ENOXAPARIN 40 MG/0.4 ML SYRINGE SUBCUT SCH (12:37)
[2020-03-13] MEDS ORDERED: AZITHROMYCIN INJ 500 MG in SODIUM CHLORIDE 0.9% 250 ML IV ONE (15:23)
[2020-03-13] MEDS ORDERED: ALBUTEROL/IPRATROPIUM 3 ML NEB RESP TX PRN (16:00)
[2020-03-13] MEDS: carvediloL 6.25 MG TABLET PO SCH (17:10)
[2020-03-13] MEDS: POTASSIUM CHLORIDE 20 MEQ TABLET PO PRN ×3 (17:22→23:27)
[2020-03-13] MEDS: SACUBITRIL/VALSARTAN 49-51 MG TABLET PO SCH (20:48)
[2020-03-13] MEDS ORDERED: ATORVASTATIN 40 MG TABLET PO SCH (21:00)
[2020-03-14] MEDS: POTASSIUM CHLORIDE 20 MEQ TABLET PO PRN (01:45)
[2020-03-14 05:05] LABS: Basophils # 0.1 10*3/uL (0.0-0.2); Basophils % 0.6 % (0.0-0.8); Eosinophils # 0.3 10*3/uL (0.0-0.87); Hematocrit 38.7 VOL% (42.0-52.0); Hemoglobin 12.9 GM/DL (14.0-18.0); Immature Granulocytes % 0.6 %; Immature Granulocytes Absolute 0.05 #; Lymphocytes # 1.7 10*3/uL (1.4-4.0); Lymphocytes % 19.3 % (21.2-54.2); Mean Corpuscular HGB Conc 33.3 GM/DL (32-36); Mean Platelet Volume 8.9 FL (9.6-12.0); Monocytes % 5.8 % (1.7-12.7); Neutrophils % 70.7 % (38.7-73.9); Platelet Count 295 T/CUMM (130-400); Red Blood Count 4.16 MC/CUMM (3.8-5.5); Red Cell Distribution Width 11.9 % (9.3-17.3); White Blood Count 8.7 T/CUMM (4-12)
[2020-03-14 05:28] LABS: Calcium 8.5 MG/DL (8.5-10.1); Osmolality,Calculated 279.4 MOS/KG (273-304)
[2020-03-14] MEDS ORDERED: AZITHROMYCIN INJ 250 MG in SODIUM CHLORIDE 0.9% 250 ML IV SCH (07:30)
[2020-03-14] MEDS ORDERED: PANTOPRAZOLE 40 MG TABLET PO SCH (09:00)
[2020-03-14] MEDS ORDERED: MULTIVITAMIN (CENTRUM) TABLET PO SCH (09:00)
[2020-03-14] MEDS ORDERED: FUROSEMIDE 40 MG/4 ML VIAL IV SCH (09:00)
[2020-03-14] MEDS ORDERED: AZITHROMYCIN 250 MG TABLET PO SCH (09:00)
[2020-03-14] MEDS ORDERED: cefTRIAXone 1,000 MG in SYRINGE 1 EACH IV SCH (09:00)
[2020-03-14] MEDS ORDERED: POTASSIUM CHLORIDE 20 MEQ TABLET PO SCH (09:00)
[2020-03-14] MEDS ORDERED: SPIRONOLACTONE 25 MG TABLET PO SCH (09:00)
[2020-03-14] MEDS ORDERED: COENZYME Q10 100 MG CAPSULE PO SCH (09:00)
[2020-03-14] MEDS: SACUBITRIL/VALSARTAN 49-51 MG TABLET PO SCH (09:00)
[2020-03-14] MEDS: carvediloL 6.25 MG TABLET PO SCH (09:01)
[2020-03-14] MEDS: INSULIN LISPRO 100 UNIT/ML SUBCUT SCH (09:01)
[2020-03-14 11:09] VITALS: BP 137/82
[2020-03-14] MEDS: ENOXAPARIN 40 MG/0.4 ML SYRINGE SUBCUT SCH (11:14)
== END 2020-03-14 12:30 | disposition home or self-care (01) ==
LOC: N.ED 08:22 → N.EDINP 08:22 → N.5E 11:51
PROVIDERS: ADMIT Internal Medicine; ATTEND Internal Medicine

== ENCOUNTER 2020-06-09 11:21 | Observation (INO) ==
[2020-06-09] MEDS ORDERED: ASPIRIN 325 MG TABLET PO STA (11:46)
[2020-06-09 11:52] LABS: Basophils # 0.1 10*3/uL (0.0-0.2); Basophils % 0.5 % (0.0-0.8); Eosinophils # 0.6 10*3/uL (0.0-0.87); Hematocrit 41.5 VOL% (42.0-52.0); Hemoglobin 13.4 GM/DL (14.0-18.0); Immature Granulocytes % 0.2 %; Immature Granulocytes Absolute 0.02 #; Lymphocytes # 1.2 10*3/uL (1.4-4.0); Lymphocytes % 12.4 % (21.2-54.2); Mean Corpuscular HGB Conc 32.3 GM/DL (32-36); Mean Corpuscular Volume 95.2 FL (87-102); Mean Platelet Volume 9.1 FL (9.6-12.0); Monocytes % 4.7 % (1.7-12.7); Neutrophils % 76.2 % (38.7-73.9); Platelet Count 250 T/CUMM (130-400); Red Blood Count 4.36 MC/CUMM (3.8-5.5); Red Cell Distribution Width 13.2 % (9.3-17.3); White Blood Count 9.4 T/CUMM (4-12)
[2020-06-09] MEDS: NITROGLYCERIN SL 0.4 MG TABLET SL PRN ×3 (11:54→15:51)
[2020-06-09 12:09] LABS: PT Patient Result 11.1 SECS (9.8-11.9)
[2020-06-09 12:10] LABS: Albumin 3.7 G/DL (3.4-5.0); Calcium 9.1 MG/DL (8.5-10.1); Osmolality,Calculated 285.1 MOS/KG (273-304); Total Protein 7.8 G/DL (6.4-8.3)
[2020-06-09] MEDS ORDERED: FUROSEMIDE 100 MG/10 ML VIAL IV STA (12:14)
[2020-06-09] MEDS ORDERED: FUROSEMIDE 40 MG/4 ML VIAL ONE (12:29)
[2020-06-09] MEDS ORDERED: ACETAMINOPHEN 325 MG TABLET PO PRN (13:26)
[2020-06-09] MEDS ORDERED: hydrALAZINE 20 MG/1 ML VIAL IV PRN (13:26)
[2020-06-09] MEDS ORDERED: DEXTROSE 50% 25 GM/50 ML VIAL IV PRN ×2 (13:26→15:37)
[2020-06-09] MEDS ORDERED: ONDANSETRON 4 MG/2 ML VIAL IV PRN (13:26)
[2020-06-09] MEDS ORDERED: GLUCAGON 1 MG VIAL IM PRN ×2 (13:26→15:37)
[2020-06-09 14:03] LABS: Risk Ratio 3.46
[2020-06-09] MEDS ORDERED: NICOTINE 21 MG/24 HR PATCH TRANSDERM PRN (15:30)
[2020-06-09] MEDS: INSULIN REGULAR 100 UNIT/ML SUBCUT SCH ×2 (15:42→20:55)
[2020-06-09] MEDS ORDERED: FUROSEMIDE 40 MG/4 ML VIAL IV SCH (16:00)
[2020-06-09] MEDS ORDERED: carvediloL 6.25 MG TABLET PO SCH (17:00)
[2020-06-09] MEDS ORDERED: ATORVASTATIN 40 MG TABLET PO SCH (21:00)
[2020-06-09] MEDS ORDERED: SACUBITRIL/VALSARTAN 49-51 MG TABLET PO SCH (21:00)
[2020-06-10] MEDS: NITROGLYCERIN SL 0.4 MG TABLET SL PRN ×3 (04:33→05:00)
[2020-06-10 05:52] LABS: Barbiturates Screen,Urine Negative (Negative); Benzodiazepines Screen,Urine Negative (Negative); Cannabinoid Screen,Urine Negative (Negative); Opiate Screen,Urine Positive (Negative); Phencyclidine Screen,Urine Negative (Negative)
[2020-06-10 05:56] LABS: Basophils % 0.4 % (0.0-0.8); Eosinophils # 0.2 10*3/uL (0.0-0.87); Eosinophils % 1.8 % (0.00-10.9); Hematocrit 38.7 VOL% (42.0-52.0); Hemoglobin 12.4 GM/DL (14.0-18.0); Immature Granulocytes % 0.4 %; Immature Granulocytes Absolute 0.04 #; Lymphocytes # 1.4 10*3/uL (1.4-4.0); Lymphocytes % 12.4 % (21.2-54.2); Mean Corpuscular Volume 95.6 FL (87-102); Mean Platelet Volume 9.5 FL (9.6-12.0); Monocytes % 7.7 % (1.7-12.7); Neutrophils % 77.3 % (38.7-73.9); Platelet Count 249 T/CUMM (130-400); Red Blood Count 4.05 MC/CUMM (3.8-5.5); Red Cell Distribution Width 13.2 % (9.3-17.3)
[2020-06-10 06:54] LABS: Calcium 8.2 MG/DL (8.5-10.1); Osmolality,Calculated 279.5 MOS/KG (273-304); Thyroid Stimulating Hormone 0.747 uIU/ml (0.358-3.74)
[2020-06-10] MEDS ORDERED: BENZONATATE 100 MG CAPSULE PO PRN (08:05)
[2020-06-10] MEDS ORDERED: PANTOPRAZOLE 40 MG TABLET PO SCH (09:00)
[2020-06-10] MEDS ORDERED: MULTIVITAMIN (CENTRUM) TABLET PO SCH (09:00)
[2020-06-10] MEDS ORDERED: SACUBITRIL/VALSARTAN 49-51 MG TABLET PO SCH (09:00)
[2020-06-10] MEDS ORDERED: COENZYME Q10 100 MG CAPSULE PO SCH (09:00)
[2020-06-10] MEDS ORDERED: SPIRONOLACTONE 25 MG TABLET PO SCH (09:00)
[2020-06-10] MEDS ORDERED: ASPIRIN CHEW 81 MG TABLET PO SCH (09:00)
[2020-06-10] MEDS ORDERED: POTASSIUM CHLORIDE 20 MEQ TABLET PO SCH (09:00)
[2020-06-10] MEDS ORDERED: FUROSEMIDE 40 MG/4 ML VIAL IV SCH ×2 (09:00→16:00)
[2020-06-10] MEDS: INSULIN REGULAR 100 UNIT/ML SUBCUT SCH ×2 (09:47→12:10)
[2020-06-10] MEDS ORDERED: CYCLOBENZAPRINE 10 MG TABLET PO PRN (09:47)
[2020-06-10] MEDS ORDERED: KETOROLAC 30 MG/1 ML VIAL IV ONE (09:47)
[2020-06-10 14:08] VITALS: BP 103/71
[2020-06-10] MEDS ORDERED: carvediloL 6.25 MG TABLET PO SCH (17:00)
[2020-06-10] MEDS ORDERED: ATORVASTATIN 40 MG TABLET PO SCH (21:00)
== END 2020-06-10 17:05 | disposition home or self-care (01) ==
LOC: N.EDINP 11:21 → N.ED 11:21 → N.EDINP 14:42 → N.TELEN 15:16
PROVIDERS: ADMIT Internal Medicine; ATTEND Internal Medicine

== ENCOUNTER 2020-07-28 21:04 | Inpatient (IN) ==
[2020-07-28] MEDS ORDERED: ASPIRIN 325 MG TABLET PO STA (21:50)
[2020-07-28 22:01] LABS: Basophils % 0.6 % (0.0-0.8); Eosinophils # 0.3 10*3/uL (0.0-0.87); Eosinophils % 4.9 % (0.00-10.9); Hematocrit 42.6 VOL% (42.0-52.0); Hemoglobin 13.9 GM/DL (14.0-18.0); Immature Granulocytes % 0.2 %; Immature Granulocytes Absolute 0.01 #; Lymphocytes # 1.3 10*3/uL (1.4-4.0); Lymphocytes % 19.2 % (21.2-54.2); Mean Corpuscular HGB Conc 32.6 GM/DL (32-36); Mean Corpuscular Volume 89.3 FL (87-102); Mean Platelet Volume 9.7 FL (9.6-12.0); Monocytes % 6.9 % (1.7-12.7); Neutrophils % 68.2 % (38.7-73.9); Platelet Count 305 T/CUMM (130-400); Red Blood Count 4.77 MC/CUMM (3.8-5.5); Red Cell Distribution Width 13.8 % (9.3-17.3); White Blood Count 6.6 T/CUMM (4-12)
[2020-07-28 22:09] LABS: PT Patient Result 10.8 SECS (9.8-11.9)
[2020-07-28 22:12] LABS: Albumin 3.6 G/DL (3.4-5.0); Bilirubin,Total 1.1 MG/DL (0.2-1.0); Calcium 9.2 MG/DL (8.5-10.1); Osmolality,Calculated 277.5 MOS/KG (273-304); Potassium 3.8 MMOL/L (3.5-5.1); Total Protein 8.5 G/DL (5.0-7.5)
[2020-07-28] MEDS ORDERED: guaiFENesin/DM ER 600-30 MG TABLET PO PRN (22:55)
[2020-07-28] MEDS ORDERED: MORPHINE 4 MG/1 ML VIAL IV PRN (22:55)
[2020-07-28] MEDS ORDERED: diphenhydrAMINE CAP 25 MG CAPSULE PO PRN (22:55)
[2020-07-28] MEDS ORDERED: hydrALAZINE 20 MG/1 ML VIAL IV PRN (22:55)
[2020-07-28] MEDS ORDERED: GLUCAGON 1 MG VIAL IM PRN (22:55)
[2020-07-28] MEDS ORDERED: DEXTROSE 50% 25 GM/50 ML VIAL IV PRN (22:55)
[2020-07-28] MEDS ORDERED: FUROSEMIDE 40 MG/4 ML VIAL IV STA (22:55)
[2020-07-28] MEDS ORDERED: ACETAMINOPHEN 325 MG TABLET PO PRN (22:55)
[2020-07-28] MEDS ORDERED: ALUMINUM/MAGNES/SIMETH MAX STR 30 ML UDCUP PO PRN (22:55)
[2020-07-28] MEDS ORDERED: ZALEPLON 5 MG CAPSULE PO PRN (22:55)
[2020-07-28] MEDS ORDERED: BISACODYL 5 MG TABLET PO PRN (22:55)
[2020-07-28] MEDS ORDERED: ALBUTEROL/IPRATROPIUM 3 ML NEB RESP TX PRN (22:55)
[2020-07-28] MEDS ORDERED: NICOTINE 21 MG/24 HR PATCH TRANSDERM PRN (22:55)
[2020-07-28] MEDS ORDERED: ONDANSETRON 4 MG/2 ML VIAL IV PRN (22:55)
[2020-07-28] MEDS ORDERED: BENZONATATE 100 MG CAPSULE PO PRN (22:59)
[2020-07-28] MEDS ORDERED: ENOXAPARIN 40 MG/0.4 ML SYRINGE ONE (23:02)
[2020-07-29] MEDS: ENOXAPARIN 40 MG/0.4 ML SYRINGE SUBCUT SCH ×2 (01:59→21:31)
[2020-07-29 05:03] LABS: Basophils % 0.4 % (0.0-0.8); Eosinophils # 0.3 10*3/uL (0.0-0.87); Eosinophils % 4.8 % (0.00-10.9); Hematocrit 41.1 VOL% (42.0-52.0); Hemoglobin 13.6 GM/DL (14.0-18.0); Immature Granulocytes % 0.3 %; Immature Granulocytes Absolute 0.02 #; Lymphocytes # 1.3 10*3/uL (1.4-4.0); Lymphocytes % 19.6 % (21.2-54.2); Mean Corpuscular HGB Conc 33.1 GM/DL (32-36); Mean Platelet Volume 9.3 FL (9.6-12.0); Monocytes % 7.2 % (1.7-12.7); Neutrophils % 67.7 % (38.7-73.9); Platelet Count 249 T/CUMM (130-400); Red Blood Count 4.67 MC/CUMM (3.8-5.5); White Blood Count 6.7 T/CUMM (4-12)
[2020-07-29 06:43] LABS: Calcium 9.1 MG/DL (8.5-10.1); Risk Ratio 3.83; VLDL CHOLESTEROL 26.4 MG/DL
[2020-07-29] MEDS ORDERED: POTASSIUM CHLORIDE 20 MEQ TABLET PO ONE (07:12)
[2020-07-29] MEDS ORDERED: SACUBITRIL/VALSARTAN 49-51 MG TABLET PO SCH ×2 (09:00)
[2020-07-29] MEDS ORDERED: AMIODARONE 200 MG TABLET PO SCH (09:00)
[2020-07-29] MEDS ORDERED: SPIRONOLACTONE 25 MG TABLET PO SCH (09:00)
[2020-07-29] MEDS: carvediloL 6.25 MG TABLET PO SCH ×2 (09:52→16:36)
[2020-07-29] MEDS: FUROSEMIDE 40 MG/4 ML VIAL IV SCH (09:52)
[2020-07-29] MEDS: SPIRONOLACTONE 25 MG TABLET PO SCH (09:52)
[2020-07-29] MEDS: MULTIVITAMIN (CENTRUM) TABLET PO SCH (09:53)
[2020-07-29] MEDS: PANTOPRAZOLE 40 MG TABLET PO SCH (09:53)
[2020-07-29] MEDS: SACUBITRIL/VALSARTAN 49-51 MG TABLET PO SCH ×2 (09:53→21:31)
[2020-07-29] MEDS: COENZYME Q10 100 MG CAPSULE PO SCH (09:54)
[2020-07-29] MEDS: POTASSIUM CHLORIDE 20 MEQ TABLET PO SCH (09:54)
[2020-07-29] MEDS: ASPIRIN EC 81 MG TABLET PO SCH (09:58)
[2020-07-29] MEDS: ATORVASTATIN 40 MG TABLET PO SCH (21:31)
[2020-07-29] MEDS: AMIODARONE 200 MG TABLET PO SCH (21:31)
[2020-07-30 04:59] LABS: Basophils % 0.6 % (0.0-0.8); Eosinophils # 0.4 10*3/uL (0.0-0.87); Eosinophils % 5.5 % (0.00-10.9); Hematocrit 42.3 VOL% (42.0-52.0); Hemoglobin 13.4 GM/DL (14.0-18.0); Immature Granulocytes % 0.3 %; Immature Granulocytes Absolute 0.02 #; Lymphocytes # 1.5 10*3/uL (1.4-4.0); Mean Corpuscular HGB Conc 31.7 GM/DL (32-36); Mean Corpuscular Volume 90.6 FL (87-102); Mean Platelet Volume 9.1 FL (9.6-12.0); Monocytes % 7.5 % (1.7-12.7); Neutrophils % 63.1 % (38.7-73.9); Platelet Count 264 T/CUMM (130-400); Red Blood Count 4.67 MC/CUMM (3.8-5.5); Red Cell Distribution Width 13.9 % (9.3-17.3); White Blood Count 6.6 T/CUMM (4-12)
[2020-07-30 05:24] LABS: Hypochromasia 1+; Microcytosis 1+
[2020-07-30 05:25] LABS: Ovalocytes Slight; Platelet Estimate Normal
[2020-07-30 05:32] LABS: Calcium 9.3 MG/DL (8.5-10.1); Osmolality,Calculated 277.7 MOS/KG (273-304); Potassium 3.6 MMOL/L (3.5-5.1)
[2020-07-30] MEDS: carvediloL 6.25 MG TABLET PO SCH ×2 (08:55→16:35)
[2020-07-30] MEDS: SPIRONOLACTONE 25 MG TABLET PO SCH (08:55)
[2020-07-30] MEDS: ASPIRIN EC 81 MG TABLET PO SCH (08:55)
[2020-07-30] MEDS: PANTOPRAZOLE 40 MG TABLET PO SCH (08:55)
[2020-07-30] MEDS: MULTIVITAMIN (CENTRUM) TABLET PO SCH (08:55)
[2020-07-30] MEDS: SACUBITRIL/VALSARTAN 49-51 MG TABLET PO SCH ×2 (08:56→21:48)
[2020-07-30] MEDS: FUROSEMIDE 40 MG/4 ML VIAL IV SCH (08:56)
[2020-07-30] MEDS: POTASSIUM CHLORIDE 20 MEQ TABLET PO SCH (08:56)
[2020-07-30] MEDS: AMIODARONE 200 MG TABLET PO SCH ×2 (08:56→21:48)
[2020-07-30] MEDS: COENZYME Q10 100 MG CAPSULE PO SCH (08:56)
[2020-07-30] MEDS: FUROSEMIDE 40 MG TABLET PO SCH ×2 (09:14→16:35)
[2020-07-30] MEDS: ATORVASTATIN 40 MG TABLET PO SCH (21:49)
[2020-07-30] MEDS: ENOXAPARIN 40 MG/0.4 ML SYRINGE SUBCUT SCH (21:51)
[2020-07-31 06:38] LABS: Basophils # 0.1 10*3/uL (0.0-0.2); Basophils % 0.8 % (0.0-0.8); Eosinophils # 0.5 10*3/uL (0.0-0.87); Eosinophils % 6.2 % (0.00-10.9); Hemoglobin 13.4 GM/DL (14.0-18.0); Immature Granulocytes % 0.3 %; Immature Granulocytes Absolute 0.02 #; Lymphocytes # 1.4 10*3/uL (1.4-4.0); Lymphocytes % 19.3 % (21.2-54.2); Mean Corpuscular HGB Conc 31.9 GM/DL (32-36); Mean Corpuscular Volume 91.3 FL (87-102); Mean Platelet Volume 8.9 FL (9.6-12.0); Monocytes % 6.6 % (1.7-12.7); Neutrophils % 66.8 % (38.7-73.9); Platelet Count 259 T/CUMM (130-400); Red Cell Distribution Width 13.9 % (9.3-17.3); White Blood Count 7.5 T/CUMM (4-12)
[2020-07-31] MEDS ORDERED: SACUBITRIL/VALSARTAN 49-51 MG TABLET PO SCH (07:00)
[2020-07-31 07:01] LABS: Calcium 8.8 MG/DL (8.5-10.1); Osmolality,Calculated 274.1 MOS/KG (273-304); Potassium 3.7 MMOL/L (3.5-5.1)
[2020-07-31] MEDS: PANTOPRAZOLE 40 MG TABLET PO SCH (08:19)
[2020-07-31] MEDS: AMIODARONE 200 MG TABLET PO SCH (08:19)
[2020-07-31] MEDS: FUROSEMIDE 40 MG TABLET PO SCH ×2 (08:19→16:20)
[2020-07-31] MEDS: POTASSIUM CHLORIDE 20 MEQ TABLET PO SCH (08:19)
[2020-07-31] MEDS: ASPIRIN EC 81 MG TABLET PO SCH (08:19)
[2020-07-31] MEDS: SPIRONOLACTONE 25 MG TABLET PO SCH (08:19)
[2020-07-31] MEDS: COENZYME Q10 100 MG CAPSULE PO SCH (08:25)
[2020-07-31] MEDS: carvediloL 6.25 MG TABLET PO SCH ×2 (08:25→16:20)
[2020-07-31] MEDS: MULTIVITAMIN (CENTRUM) TABLET PO SCH (08:26)
[2020-07-31] MEDS: ATORVASTATIN 40 MG TABLET PO SCH (21:19)
[2020-07-31] MEDS: ENOXAPARIN 40 MG/0.4 ML SYRINGE SUBCUT SCH (21:19)
[2020-08-01 05:14] LABS: Basophils % 0.6 % (0.0-0.8); Eosinophils # 0.4 10*3/uL (0.0-0.87); Eosinophils % 6.2 % (0.00-10.9); Hematocrit 39.3 VOL% (42.0-52.0); Hemoglobin 12.8 GM/DL (14.0-18.0); Immature Granulocytes % 0.5 %; Immature Granulocytes Absolute 0.03 #; Lymphocytes # 1.5 10*3/uL (1.4-4.0); Lymphocytes % 23.3 % (21.2-54.2); Mean Corpuscular HGB Conc 32.6 GM/DL (32-36); Mean Corpuscular Volume 90.3 FL (87-102); Mean Platelet Volume 9.2 FL (9.6-12.0); Monocytes % 6.7 % (1.7-12.7); Neutrophils % 62.7 % (38.7-73.9); Platelet Count 248 T/CUMM (130-400); Red Blood Count 4.35 MC/CUMM (3.8-5.5); Red Cell Distribution Width 13.8 % (9.3-17.3); White Blood Count 6.6 T/CUMM (4-12)
[2020-08-01 05:35] LABS: Hypochromasia Slight; Microcytosis Slight; Ovalocytes Slight; Platelet Estimate Adequate
[2020-08-01 05:46] LABS: Calcium 8.2 MG/DL (8.5-10.1); Osmolality,Calculated 283.4 MOS/KG (273-304)
[2020-08-01] MEDS: MULTIVITAMIN (CENTRUM) TABLET PO SCH (09:39)
[2020-08-01] MEDS: AMIODARONE 200 MG TABLET PO SCH (09:40)
[2020-08-01] MEDS: PANTOPRAZOLE 40 MG TABLET PO SCH (09:40)
[2020-08-01] MEDS: ASPIRIN EC 81 MG TABLET PO SCH (09:40)
[2020-08-01] MEDS: FUROSEMIDE 40 MG TABLET PO SCH ×2 (09:40→17:56)
[2020-08-01] MEDS: POTASSIUM CHLORIDE 20 MEQ TABLET PO SCH (09:40)
[2020-08-01] MEDS: SPIRONOLACTONE 25 MG TABLET PO SCH (09:40)
[2020-08-01] MEDS: COENZYME Q10 100 MG CAPSULE PO SCH (09:40)
[2020-08-01] MEDS: carvediloL 6.25 MG TABLET PO SCH (09:42)
[2020-08-01] MEDS: ENOXAPARIN 40 MG/0.4 ML SYRINGE SUBCUT SCH (20:42)
[2020-08-01] MEDS: ATORVASTATIN 40 MG TABLET PO SCH (20:42)
[2020-08-01] MEDS ORDERED: METOPROLOL SUCCINATE XL 25 MG TABLET PO SCH (21:00)
[2020-08-02 05:38] LABS: Basophils # 0.1 10*3/uL (0.0-0.2); Basophils % 0.7 % (0.0-0.8); Eosinophils # 0.4 10*3/uL (0.0-0.87); Eosinophils % 4.7 % (0.00-10.9); Hematocrit 42.3 VOL% (42.0-52.0); Hemoglobin 13.6 GM/DL (14.0-18.0); Immature Granulocytes % 0.3 %; Immature Granulocytes Absolute 0.02 #; Lymphocytes # 1.5 10*3/uL (1.4-4.0); Mean Corpuscular HGB Conc 32.2 GM/DL (32-36); Mean Platelet Volume 9.2 FL (9.6-12.0); Neutrophils % 69.3 % (38.7-73.9); Platelet Count 253 T/CUMM (130-400); Red Blood Count 4.65 MC/CUMM (3.8-5.5); Red Cell Distribution Width 13.7 % (9.3-17.3); White Blood Count 7.7 T/CUMM (4-12)
[2020-08-02 05:58] LABS: Calcium 8.7 MG/DL (8.5-10.1); Osmolality,Calculated 281.5 MOS/KG (273-304); Potassium 3.9 MMOL/L (3.5-5.1)
[2020-08-02 06:03] LABS: Platelet Estimate Adequate
[2020-08-02] MEDS ORDERED: METOPROLOL SUCCINATE XL 25 MG TABLET PO SCH (09:00)
[2020-08-02] MEDS: FUROSEMIDE 40 MG TABLET PO SCH (10:20)
[2020-08-02] MEDS: SPIRONOLACTONE 25 MG TABLET PO SCH (10:20)
[2020-08-02] MEDS: POTASSIUM CHLORIDE 20 MEQ TABLET PO SCH (10:20)
[2020-08-02] MEDS: ASPIRIN EC 81 MG TABLET PO SCH (10:20)
[2020-08-02] MEDS: PANTOPRAZOLE 40 MG TABLET PO SCH (10:21)
[2020-08-02] MEDS: MULTIVITAMIN (CENTRUM) TABLET PO SCH (10:21)
[2020-08-02] MEDS: AMIODARONE 200 MG TABLET PO SCH (10:22)
[2020-08-02] MEDS: COENZYME Q10 100 MG CAPSULE PO SCH (10:22)
[2020-08-02 12:26] VITALS: BP 118/81
== END 2020-08-02 14:14 | disposition home or self-care (01) | DRG 292 ==
LOC: N.ED 21:04 → N.EDINP 21:04 → SUATTDRO 22:55 → N.TELEN 23:42
PROVIDERS: ADMIT Phlebology; ATTEND Internal Medicine

== ENCOUNTER 2020-08-29 17:10 | Inpatient (IN) ==
[2020-08-29] MEDS: ATORVASTATIN 40 MG TABLET PO SCH (21:41)
[2020-08-29] MEDS: FUROSEMIDE 40 MG/4 ML VIAL IV SCH (21:41)
[2020-08-29] MEDS: METOPROLOL SUCCINATE XL 25 MG TABLET PO SCH (21:41)
[2020-08-29 21:49] LABS: Basophils % 0.4 % (0.0-0.8); Eosinophils # 0.2 10*3/uL (0.0-0.87); Eosinophils % 2.2 % (0.00-10.9); Immature Granulocytes % 0.3 %; Immature Granulocytes Absolute 0.03 #; Lymphocytes # 1.3 10*3/uL (1.4-4.0); Lymphocytes % 14.1 % (21.2-54.2); Mean Corpuscular HGB Conc 31.6 GM/DL (32-36); Mean Corpuscular Volume 91.8 FL (87-102); Mean Platelet Volume 9.2 FL (9.6-12.0); Monocytes % 8.2 % (1.7-12.7); Neutrophils % 74.8 % (38.7-73.9); Platelet Count 227 T/CUMM (130-400); Red Blood Count 4.14 MC/CUMM (3.8-5.5); Red Cell Distribution Width 14.8 % (9.3-17.3)
[2020-08-29 22:15] LABS: Calcium 8.5 MG/DL (8.5-10.1); Osmolality,Calculated 285.3 MOS/KG (273-304); Potassium 3.5 MMOL/L (3.5-5.1); Thyroid Stimulating Hormone 1.72 uIU/ml (0.358-3.74)
[2020-08-29 22:24] LABS: Albumin 3.4 G/DL (3.4-5.0); Bilirubin,Total 1.5 MG/DL (0.2-1.0); Calcium 8.7 MG/DL (8.5-10.1); Osmolality,Calculated 283.4 MOS/KG (273-304); Potassium 3.4 MMOL/L (3.5-5.1); Total Protein 7.3 G/DL (6.4-8.2)
[2020-08-30 05:22] LABS: Basophils % 0.5 % (0.0-0.8); Eosinophils # 0.3 10*3/uL (0.0-0.87); Eosinophils % 4.2 % (0.00-10.9); Hematocrit 35.3 VOL% (42.0-52.0); Hemoglobin 11.4 GM/DL (14.0-18.0); Immature Granulocytes % 0.3 %; Immature Granulocytes Absolute 0.02 #; Lymphocytes # 1.3 10*3/uL (1.4-4.0); Lymphocytes % 17.3 % (21.2-54.2); Mean Corpuscular HGB Conc 32.3 GM/DL (32-36); Mean Corpuscular Volume 90.3 FL (87-102); Mean Platelet Volume 9.5 FL (9.6-12.0); Monocytes % 6.6 % (1.7-12.7); Neutrophils % 71.1 % (38.7-73.9); Platelet Count 221 T/CUMM (130-400); Red Blood Count 3.91 MC/CUMM (3.8-5.5); Red Cell Distribution Width 14.9 % (9.3-17.3); White Blood Count 7.7 T/CUMM (4-12)
[2020-08-30 05:37] LABS: Calcium 8.5 MG/DL (8.5-10.1); Osmolality,Calculated 281.5 MOS/KG (273-304); Potassium 3.5 MMOL/L (3.5-5.1)
[2020-08-30] MEDS: POTASSIUM CHLORIDE 20 MEQ TABLET PO SCH (08:58)
[2020-08-30] MEDS: COENZYME Q10 100 MG CAPSULE PO SCH (08:59)
[2020-08-30] MEDS: METOPROLOL SUCCINATE XL 25 MG TABLET PO SCH ×2 (08:59→20:23)
[2020-08-30] MEDS: FUROSEMIDE 40 MG/4 ML VIAL IV SCH ×2 (08:59→17:08)
[2020-08-30] MEDS: ASPIRIN CHEW 81 MG TABLET PO SCH (08:59)
[2020-08-30] MEDS: SPIRONOLACTONE 25 MG TABLET PO SCH (08:59)
[2020-08-30] MEDS: AMIODARONE 200 MG TABLET PO SCH (08:59)
[2020-08-30] MEDS ORDERED: POTASSIUM CHLORIDE 20 MEQ TABLET PO SCH (09:00)
[2020-08-30] MEDS: methylPREDNISolone SOD SUC 125 MG/2 ML VIAL IV SCH ×2 (13:38→20:48)
[2020-08-30] MEDS: ASCORBIC ACID 500 MG TABLET PO SCH ×2 (13:42→20:23)
[2020-08-30] MEDS: LEVOFLOXACIN 500 MG TABLET PO SCH (13:42)
[2020-08-30] MEDS: ALBUTEROL 0.63 MG/3 ML NEB RESP TX SCH ×2 (14:32→18:12)
[2020-08-30] MEDS: ATORVASTATIN 40 MG TABLET PO SCH (20:23)
[2020-08-30] MEDS ORDERED: METOPROLOL SUCCINATE XL 25 MG TABLET PO SCH (21:00)
[2020-08-31] MEDS: ALBUTEROL 0.63 MG/3 ML NEB RESP TX SCH ×4 (01:12→20:41)
[2020-08-31] MEDS: methylPREDNISolone SOD SUC 125 MG/2 ML VIAL IV SCH ×2 (05:11→14:21)
[2020-08-31 05:23] LABS: Basophils % 0.1 % (0.0-0.8); Hematocrit 36.7 VOL% (42.0-52.0); Hemoglobin 12.2 GM/DL (14.0-18.0); Immature Granulocytes % 0.4 %; Immature Granulocytes Absolute 0.04 #; Lymphocytes # 0.4 10*3/uL (1.4-4.0); Lymphocytes % 4.3 % (21.2-54.2); Mean Corpuscular HGB Conc 33.2 GM/DL (32-36); Mean Corpuscular Volume 88.4 FL (87-102); Mean Platelet Volume 9.3 FL (9.6-12.0); Monocytes % 0.8 % (1.7-12.7); Neutrophils % 94.4 % (38.7-73.9); Platelet Count 249 T/CUMM (130-400); Red Blood Count 4.15 MC/CUMM (3.8-5.5); Red Cell Distribution Width 14.7 % (9.3-17.3); White Blood Count 9.8 T/CUMM (4-12)
[2020-08-31 05:48] LABS: Potassium 4.4 MMOL/L (3.5-5.1)
[2020-08-31 05:52] LABS: Band Neutrophils 3 % (0-10); Lymphocytes 4 % (20-55); Segmented Neutrophils 92 % (50-85); Total Cells Counted 100
[2020-08-31 05:53] LABS: Hypochromasia 1+; Microcytosis Slight
[2020-08-31 05:54] LABS: Ovalocytes Slight; Platelet Estimate Normal
[2020-08-31] MEDS: POTASSIUM CHLORIDE 20 MEQ TABLET PO SCH (08:24)
[2020-08-31] MEDS: ASCORBIC ACID 500 MG TABLET PO SCH ×2 (08:24→20:31)
[2020-08-31] MEDS: METOPROLOL SUCCINATE XL 25 MG TABLET PO SCH ×2 (08:24→20:31)
[2020-08-31] MEDS: ASPIRIN CHEW 81 MG TABLET PO SCH (08:24)
[2020-08-31] MEDS: SPIRONOLACTONE 25 MG TABLET PO SCH (08:24)
[2020-08-31] MEDS: COENZYME Q10 100 MG CAPSULE PO SCH (08:24)
[2020-08-31] MEDS: LEVOFLOXACIN 500 MG TABLET PO SCH (08:24)
[2020-08-31] MEDS: AMIODARONE 200 MG TABLET PO SCH (08:24)
[2020-08-31] MEDS: FUROSEMIDE 40 MG/4 ML VIAL IV SCH ×2 (08:25→16:46)
[2020-08-31] MEDS: metOLazone 5 MG TABLET PO SCH (14:26)
[2020-08-31] MEDS: ATORVASTATIN 40 MG TABLET PO SCH (20:31)
[2020-09-01] MEDS: methylPREDNISolone SOD SUC 40 MG/1 ML VIAL IV SCH ×2 (01:45→14:45)
[2020-09-01] MEDS: ALBUTEROL 0.63 MG/3 ML NEB RESP TX SCH ×4 (02:46→19:34)
[2020-09-01 06:15] LABS: Basophils % 0.1 % (0.0-0.8); Hematocrit 36.9 VOL% (42.0-52.0); Hemoglobin 12.1 GM/DL (14.0-18.0); Immature Granulocytes % 0.7 %; Immature Granulocytes Absolute 0.13 #; Lymphocytes # 0.4 10*3/uL (1.4-4.0); Lymphocytes % 2.2 % (21.2-54.2); Mean Corpuscular HGB Conc 32.8 GM/DL (32-36); Mean Corpuscular Volume 89.3 FL (87-102); Mean Platelet Volume 9.6 FL (9.6-12.0); Monocytes % 1.9 % (1.7-12.7); Neutrophils % 95.1 % (38.7-73.9); Platelet Count 277 T/CUMM (130-400); Red Blood Count 4.13 MC/CUMM (3.8-5.5); Red Cell Distribution Width 15.1 % (9.3-17.3); White Blood Count 19.8 T/CUMM (4-12)
[2020-09-01 06:42] LABS: Calcium 9.2 MG/DL (8.5-10.1); Potassium 4.5 MMOL/L (3.5-5.1)
[2020-09-01 07:17] LABS: Anisocytosis 1+; Band Neutrophils 7 % (0-10); Burr Cells Few; Lymphocytes 3 % (20-55); Macrocytosis Slight; Platelet Estimate Normal; Segmented Neutrophils 87 % (50-85); Total Cells Counted 100
[2020-09-01] MEDS: FUROSEMIDE 40 MG/4 ML VIAL IV SCH ×2 (09:18→16:04)
[2020-09-01] MEDS: METOPROLOL SUCCINATE XL 25 MG TABLET PO SCH ×2 (09:18→20:25)
[2020-09-01] MEDS: COENZYME Q10 100 MG CAPSULE PO SCH (09:18)
[2020-09-01] MEDS: ASPIRIN CHEW 81 MG TABLET PO SCH (09:18)
[2020-09-01] MEDS: LEVOFLOXACIN 500 MG TABLET PO SCH (09:18)
[2020-09-01] MEDS: ASCORBIC ACID 500 MG TABLET PO SCH ×2 (09:19→20:25)
[2020-09-01] MEDS: AMIODARONE 200 MG TABLET PO SCH (09:19)
[2020-09-01] MEDS: SPIRONOLACTONE 25 MG TABLET PO SCH (09:19)
[2020-09-01] MEDS: POTASSIUM CHLORIDE 20 MEQ TABLET PO SCH (09:19)
[2020-09-01] MEDS: metOLazone 5 MG TABLET PO SCH (09:19)
[2020-09-01] MEDS: ACETAMINOPHEN 325 MG TABLET PO PRN ×2 (14:46→18:18)
[2020-09-01] MEDS: ATORVASTATIN 40 MG TABLET PO SCH (20:25)
[2020-09-02] MEDS: ALBUTEROL 0.63 MG/3 ML NEB RESP TX SCH ×4 (00:32→19:41)
[2020-09-02] MEDS: methylPREDNISolone SOD SUC 40 MG/1 ML VIAL IV SCH (00:50)
[2020-09-02 06:01] LABS: Basophils % 0.1 % (0.0-0.8); Hematocrit 37.8 VOL% (42.0-52.0); Hemoglobin 12.2 GM/DL (14.0-18.0); Immature Granulocytes % 0.9 %; Immature Granulocytes Absolute 0.15 #; Lymphocytes # 0.5 10*3/uL (1.4-4.0); Lymphocytes % 2.9 % (21.2-54.2); Mean Corpuscular HGB Conc 32.3 GM/DL (32-36); Mean Corpuscular Volume 90.4 FL (87-102); Mean Platelet Volume 9.7 FL (9.6-12.0); Neutrophils % 94.1 % (38.7-73.9); Platelet Count 313 T/CUMM (130-400); Red Blood Count 4.18 MC/CUMM (3.8-5.5); Red Cell Distribution Width 15.2 % (9.3-17.3); White Blood Count 17.6 T/CUMM (4-12)
[2020-09-02 06:18] LABS: Calcium 9.1 MG/DL (8.5-10.1); Osmolality,Calculated 282.1 MOS/KG (273-304); Potassium 4.2 MMOL/L (3.5-5.1)
[2020-09-02 06:49] LABS: Band Neutrophils 3 % (0-10); Lymphocytes 2 % (20-55); Platelet Estimate Normal; Segmented Neutrophils 92 % (50-85); Total Cells Counted 100
[2020-09-02 06:50] LABS: Anisocytosis 2+; Macrocytosis Slight; Ovalocytes Few
[2020-09-02] MEDS ORDERED: MECLIZINE 25 MG TABLET PO ONE (08:07)
[2020-09-02] MEDS ORDERED: MECLIZINE 12.5 MG TABLET PO PRN (08:08)
[2020-09-02] MEDS ORDERED: MECLIZINE 25 MG TABLET PO PRN (08:30)
[2020-09-02] MEDS: FUROSEMIDE 40 MG/4 ML VIAL IV SCH ×2 (08:51→15:59)
[2020-09-02] MEDS: POTASSIUM CHLORIDE 20 MEQ TABLET PO SCH (08:51)
[2020-09-02] MEDS: METOPROLOL SUCCINATE XL 25 MG TABLET PO SCH ×2 (08:51→20:27)
[2020-09-02] MEDS: COENZYME Q10 100 MG CAPSULE PO SCH (08:51)
[2020-09-02] MEDS: metOLazone 5 MG TABLET PO SCH (08:52)
[2020-09-02] MEDS: LEVOFLOXACIN 500 MG TABLET PO SCH (08:52)
[2020-09-02] MEDS: ASCORBIC ACID 500 MG TABLET PO SCH ×2 (08:52→20:27)
[2020-09-02] MEDS: SPIRONOLACTONE 25 MG TABLET PO SCH (08:53)
[2020-09-02] MEDS: AMIODARONE 200 MG TABLET PO SCH (08:53)
[2020-09-02] MEDS: ASPIRIN CHEW 81 MG TABLET PO SCH (08:55)
[2020-09-02] MEDS ORDERED: ALPRAZolam 0.25 MG TABLET PO PRN (16:44)
[2020-09-02] MEDS ORDERED: ALPRAZolam 0.25 MG TABLET PO ONE (17:00)
[2020-09-02] MEDS: ATORVASTATIN 40 MG TABLET PO SCH (20:27)
[2020-09-03] MEDS: ALBUTEROL 0.63 MG/3 ML NEB RESP TX SCH ×4 (01:05→18:40)
[2020-09-03 04:28] LABS: Basophils % 0.1 % (0.0-0.8); Hemoglobin 13.3 GM/DL (14.0-18.0); Immature Granulocytes % 0.7 %; Lymphocytes # 1.3 10*3/uL (1.4-4.0); Lymphocytes % 9.8 % (21.2-54.2); Mean Corpuscular HGB Conc 33.3 GM/DL (32-36); Mean Corpuscular Volume 88.5 FL (87-102); Mean Platelet Volume 9.2 FL (9.6-12.0); Monocytes % 6.8 % (1.7-12.7); Neutrophils % 82.6 % (38.7-73.9); Platelet Count 284 T/CUMM (130-400); Red Blood Count 4.52 MC/CUMM (3.8-5.5); Red Cell Distribution Width 15.2 % (9.3-17.3); White Blood Count 13.7 T/CUMM (4-12)
[2020-09-03 04:58] LABS: Osmolality,Calculated 279.4 MOS/KG (273-304)
[2020-09-03] MEDS: ASPIRIN CHEW 81 MG TABLET PO SCH (09:31)
[2020-09-03] MEDS: COENZYME Q10 100 MG CAPSULE PO SCH (09:31)
[2020-09-03] MEDS: METOPROLOL SUCCINATE XL 25 MG TABLET PO SCH ×2 (09:32→20:38)
[2020-09-03] MEDS: ASCORBIC ACID 500 MG TABLET PO SCH ×2 (09:32→20:39)
[2020-09-03] MEDS: metOLazone 5 MG TABLET PO SCH (09:32)
[2020-09-03] MEDS: SPIRONOLACTONE 25 MG TABLET PO SCH (09:33)
[2020-09-03] MEDS: AMIODARONE 200 MG TABLET PO SCH (09:33)
[2020-09-03] MEDS: POTASSIUM CHLORIDE 20 MEQ TABLET PO SCH (09:33)
[2020-09-03] MEDS: LEVOFLOXACIN 500 MG TABLET PO SCH (09:36)
[2020-09-03] MEDS ORDERED: SERTRALINE 25 MG TABLET PO ONE (10:30)
[2020-09-03] MEDS: FLUTICASONE 50 MCG NASAL SPRAY 16 GM BOTTLE BOTH NARES SCH (10:49)
[2020-09-03] MEDS: FUROSEMIDE 40 MG/4 ML VIAL IV SCH (10:57)
[2020-09-03] MEDS ORDERED: predniSONE 20 MG TABLET PO ONE (14:36)
[2020-09-03] MEDS: FUROSEMIDE 40 MG TABLET PO SCH (16:38)
[2020-09-03] MEDS: ATORVASTATIN 40 MG TABLET PO SCH (20:38)
[2020-09-03] MEDS: CETIRIZINE 10 MG TABLET PO SCH (20:39)
[2020-09-03] MEDS ORDERED: SERTRALINE 25 MG TABLET PO SCH (21:00)
[2020-09-04] MEDS: ALBUTEROL 0.63 MG/3 ML NEB RESP TX SCH ×3 (00:19→13:45)
[2020-09-04 05:04] LABS: Basophils % 0.2 % (0.0-0.8); Hematocrit 43.3 VOL% (42.0-52.0); Hemoglobin 13.9 GM/DL (14.0-18.0); Immature Granulocytes % 1.1 %; Immature Granulocytes Absolute 0.11 #; Lymphocytes # 0.8 10*3/uL (1.4-4.0); Lymphocytes % 7.9 % (21.2-54.2); Mean Corpuscular HGB Conc 32.1 GM/DL (32-36); Mean Corpuscular Volume 89.3 FL (87-102); Mean Platelet Volume 9.4 FL (9.6-12.0); Monocytes % 5.4 % (1.7-12.7); Neutrophils % 85.4 % (38.7-73.9); Platelet Count 325 T/CUMM (130-400); Red Blood Count 4.85 MC/CUMM (3.8-5.5); White Blood Count 9.9 T/CUMM (4-12)
[2020-09-04 05:19] LABS: Calcium 9.5 MG/DL (8.5-10.1); Osmolality,Calculated 281.2 MOS/KG (273-304); Potassium 4.6 MMOL/L (3.5-5.1)
[2020-09-04] MEDS ORDERED: predniSONE 20 MG TABLET PO SCH (09:00)
[2020-09-04] MEDS: ASPIRIN CHEW 81 MG TABLET PO SCH (09:05)
[2020-09-04] MEDS: COENZYME Q10 100 MG CAPSULE PO SCH (09:05)
[2020-09-04] MEDS: metOLazone 5 MG TABLET PO SCH (09:05)
[2020-09-04] MEDS: FUROSEMIDE 40 MG TABLET PO SCH ×2 (09:06→17:25)
[2020-09-04] MEDS: POTASSIUM CHLORIDE 20 MEQ TABLET PO SCH (09:06)
[2020-09-04] MEDS: AMIODARONE 200 MG TABLET PO SCH (09:06)
[2020-09-04] MEDS: ASCORBIC ACID 500 MG TABLET PO SCH (09:06)
[2020-09-04] MEDS: METOPROLOL SUCCINATE XL 25 MG TABLET PO SCH (09:06)
[2020-09-04] MEDS: SPIRONOLACTONE 25 MG TABLET PO SCH (09:06)
[2020-09-04] MEDS: LEVOFLOXACIN 500 MG TABLET PO SCH (09:06)
[2020-09-04] MEDS: CETIRIZINE 10 MG TABLET PO SCH (09:06)
[2020-09-04] MEDS: FLUTICASONE 50 MCG NASAL SPRAY 16 GM BOTTLE BOTH NARES SCH (09:06)
[2020-09-04 16:24] VITALS: BP 126/88
== END 2020-09-04 17:29 | disposition home or self-care (01) | DRG 292 ==
LOC: N.TELES
PROVIDERS: ADMIT Internal Medicine Cardiovascular Disease; ATTEND Internal Medicine Cardiovascular Disease

== ENCOUNTER 2022-07-11 17:30 | Observation (INO) ==
[2022-07-11 18:34] LABS: Basophils % 0.3 % (0.0-0.8); Eosinophils # 0.1 10*3/uL (0.0-0.87); Eosinophils % 0.9 % (0.00-10.9); Hematocrit 42.9 VOL% (42.0-52.0); Hemoglobin 14.7 GM/DL (14.0-18.0); Immature Granulocytes % 0.4 %; Immature Granulocytes Absolute 0.03 #; Lymphocytes % 14.2 % (21.2-54.2); Mean Corpuscular HGB Conc 34.3 GM/DL (32-36); Mean Corpuscular Volume 94.7 FL (87-102); Mean Platelet Volume 8.9 FL (9.6-12.0); Monocytes # 0.5 10*3/uL (0.11-0.8); Monocytes % 6.8 % (1.7-12.7); Neutrophils % 77.4 % (38.7-73.9); Platelet Count 214 T/CUMM (130-400); Red Blood Count 4.53 MC/CUMM (3.8-5.5); Red Cell Distribution Width 11.4 % (9.3-17.3); White Blood Count 6.77 T/CUMM (4-12)
[2022-07-11 18:44] LABS: PT Patient Result 10.8 SECS (10.1-12.1); Partial Thromboplastin Time 25.4 SECS (23.7-32.9)
[2022-07-11 18:51] LABS: Calcium 8.9 MG/DL (8.5-10.1); Osmolality,Calculated 286.4 MOS/KG (273-304); Potassium 4.4 MMOL/L (3.5-5.1)
[2022-07-11] MEDS ORDERED: ONDANSETRON 4 MG/2 ML VIAL IV STA (18:58)
[2022-07-11] MEDS ORDERED: SODIUM CHLORIDE 0.9% 500 ML IV STA (18:58)
[2022-07-11] MEDS ORDERED: MORPHINE 2 MG/1 ML SYRINGE IV STA (18:58)
[2022-07-11] MEDS ORDERED: METOPROLOL TARTRATE 5 MG/5 ML VIAL IV STA (19:02)
[2022-07-11] MEDS ORDERED: hydrALAZINE 20 MG/1 ML VIAL IV PRN (19:57)
[2022-07-11] MEDS ORDERED: ONDANSETRON 4 MG/2 ML VIAL IV PRN (19:57)
[2022-07-11] MEDS ORDERED: MORPHINE 2 MG/1 ML SYRINGE IV PRN (19:57)
[2022-07-11] MEDS ORDERED: ACETAMINOPHEN 325 MG TABLET PO PRN (19:57)
[2022-07-11] MEDS ORDERED: FLUTICASONE 50 MCG NASAL SPRAY 16 GM BOTTLE BOTH NARES PRN (21:55)
[2022-07-11] MEDS ORDERED: FEXOFENADINE 180 MG TABLET PO PRN (21:55)
[2022-07-11] MEDS ORDERED: AMIODARONE 200 MG TABLET PO SCH (22:30)
[2022-07-11] MEDS: SACUBITRIL/VALSARTAN 49-51 MG TABLET PO SCH (23:28)
[2022-07-11] MEDS: METOPROLOL SUCCINATE XL 50 MG TABLET PO SCH (23:28)
[2022-07-12 06:05] LABS: Basophils % 0.3 % (0.0-0.8); Eosinophils # 0.2 10*3/uL (0.0-0.87); Eosinophils % 2.8 % (0.00-10.9); Hematocrit 40.3 VOL% (42.0-52.0); Hemoglobin 13.6 GM/DL (14.0-18.0); Immature Granulocytes % 0.2 %; Immature Granulocytes Absolute 0.01 #; Lymphocytes # 1.6 10*3/uL (1.4-4.0); Lymphocytes % 24.8 % (21.2-54.2); Mean Corpuscular HGB Conc 33.7 GM/DL (32-36); Mean Corpuscular Volume 96.6 FL (87-102); Mean Platelet Volume 9.4 FL (9.6-12.0); Monocytes # 0.6 10*3/uL (0.11-0.8); Monocytes % 9.8 % (1.7-12.7); Neutrophils % 62.1 % (38.7-73.9); Platelet Count 195 T/CUMM (130-400); Red Blood Count 4.17 MC/CUMM (3.8-5.5); Red Cell Distribution Width 11.6 % (9.3-17.3); White Blood Count 6.52 T/CUMM (4-12)
[2022-07-12 06:28] LABS: Bilirubin,Total 0.7 MG/DL (0.20-1.00); Calcium 8.8 MG/DL (8.5-10.1); Osmolality,Calculated 285.1 MOS/KG (273-304); Potassium 3.7 MMOL/L (3.5-5.1); Total Protein 6.6 G/DL (6.4-8.2)
[2022-07-12 08:36] LABS: Free T4 (Free Thyroxine) 5.24 NG/DL (0.76-1.46)
[2022-07-12] MEDS ORDERED: MULTIVITAMIN (CENTRUM) TABLET PO SCH (09:00)
[2022-07-12] MEDS ORDERED: PANTOPRAZOLE 40 MG TABLET PO SCH (09:00)
[2022-07-12] MEDS ORDERED: SPIRONOLACTONE 25 MG TABLET PO SCH (09:00)
[2022-07-12] MEDS ORDERED: ASPIRIN CHEW 81 MG TABLET PO SCH (09:00)
[2022-07-12] MEDS ORDERED: COENZYME Q10 100 MG CAPSULE PO SCH (09:00)
[2022-07-12] MEDS ORDERED: ASCORBIC ACID 500 MG TABLET PO SCH (09:00)
[2022-07-12] MEDS: SACUBITRIL/VALSARTAN 49-51 MG TABLET PO SCH (09:51)
[2022-07-12] MEDS: METOPROLOL SUCCINATE XL 50 MG TABLET PO SCH (09:51)
[2022-07-12 15:58] VITALS: BP 109/62
[2022-07-12] MEDS ORDERED: ATORVASTATIN 40 MG TABLET PO SCH (21:00)
[2022-07-12] MEDS ORDERED: ENOXAPARIN 40 MG/0.4 ML SYRINGE SUBCUT SCH (21:00)
== END 2022-07-12 17:04 | disposition home or self-care (01) ==
LOC: N.ED 17:30 → N.EDINP 17:30 → N.2W 21:09
PROVIDERS: ADMIT Internal Medicine; ATTEND Internal Medicine